=== PATIENT | male | born 1970 | race Caucasian/White ===

== ENCOUNTER 2017-07-03 16:44 | Emergency (ER) | payer OTHER ==
[2017-07-03] MEDS ORDERED: SODIUM CHLORIDE 0.9% 1,000 ML IV STA (19:34)
--- NOTE | 2017-07-03 19:37 | ED ---
Abdominal Pain HPI - General Chief Complaint: Abdominal Pain Stated Complaint: Abd Pain Time Seen by Provider: 07/03/17 19:24 Source: patient Mode of arrival: ambulatory Limitations: no limitations - History of Present Illness Initial Comments: 47-year-old male patient presents to the emergency department today for complaints of lower abdominal pain. Patient states the pain is in his suprapubic region. States that there is a constant pressure to the area however he does have sharp stabbing pains intermittently. Patient states he has been having loose stools for the last 2 days as well. He states that his stool is currently very dark. He states he has been taking Pepto-Bismol to help with his symptoms. He states that he has been having hot and cold flashes. He denies any known fevers. He denies any constipation. Patient denies any recent rash, fever, chills, shortness breath, chest pain, nausea, vomiting, back pain, numbness, tingling, dizziness, weakness, hematuria, dysuria , urinary urgency, urinary frequency, headache, visual changes, or any other complaints. - Related Data Home Medications Medication Instructions Recorded Confirmed Cyclobenzaprine [Flexeril] 10 mg PO TID PRN 05/15/14 07/03/17 Furosemide [Lasix] 20 mg PO DAILY 05/15/14 07/03/17 Lisinopril [Prinivil] 10 mg PO DAILY 05/15/14 07/03/17 Ranitidine HCl [Zantac] 150 mg PO BID 05/15/14 07/03/17 Simvastatin [Zocor] 40 mg PO HS 05/15/14 07/03/17 HYDROcodone/APAP 10-325MG [[place] 1 tab PO Q8H PRN 07/03/17 07/03/17 10-325] Allergies Allergy/AdvReac Type Severity Reaction Status Date / Time No Known Allergies Allergy Verified 07/03/17 19:27 Review of Systems ROS Statement: Those systems with pertinent positive or pertinent negative responses have been documented in the HPI. ROS Other: All systems not noted in ROS Statement are negative. Past Medical History Past Medical History: Asthma, GERD/Reflux, Hypertension, Sleep Apnea/CPAP/BIPAP Additional Past Medical History / Comment(s): C PAP MACHINE History of Any Multi-Drug Resistant Organisms: None Reported Past Surgical History: Cholecystectomy Additional Past Surgical History / Comment(s): 07/20/14 Lap alecia, left-cataract , EGD Past Anesthesia/Blood Transfusion Reactions: No Reported Reaction Past Psychological History: No Psychological Hx Reported Smoking Status: Current every day smoker Past Alcohol Use History: Occasional Past Drug Use History: None Reported - Past Family History Mother Family Medical History: Hypertension Father Family Medical History: Asthma, COPD, Coronary Artery Disease (CAD), Hypertension General Exam Limitations: no limitations General appearance: alert, in no apparent distress, other (Physical well- developed, well-nourished adult male patient in no acute distress. Vital signs upon presentation are temperature 98.2F, pulse 97, respirations 18, blood pressure 142/74, pulse ox 95% on room air.) Eye exam: Present: normal appearance, PERRL, EOMI. Absent: scleral icterus, conjunctival injection, periorbital swelling ENT exam: Present: normal exam, normal oropharynx, mucous membranes moist Respiratory exam: Present: normal lung sounds bilaterally. Absent: respiratory distress, wheezes, rales, rhonchi, stridor Cardiovascular Exam: Present: regular rate, normal rhythm, normal heart sounds. Absent: systolic murmur, diastolic murmur, rubs, gallop, clicks GI/Abdominal exam: Present: soft, tenderness (Suprapubic abdominal tenderness), normal bowel sounds. Absent: distended, guarding, rebound, rigid Neurological exam: Present: alert, oriented X3, CN II-XII intact Psychiatric exam: Present: normal affect, normal mood Skin exam: Present: warm, dry, intact, normal color. Absent: rash Course Vital Signs 07/03/17 07/03/17 17:14 21:17 Temperature 98.2 F 98 F Pulse Rate 97 88 Respiratory 18 20 Rate Blood Pressure 142/74 155/75 O2 Sat by Pulse 95 99 Oximetry Medical Decision Making - Medical Decision Making 47 year-old male patient presented to the emergency department today for complaints of mid lower abdominal pain. Physical examination was relatively unremarkable, no abdominal tenderness. KUB x-ray did show large bowel air- fluid levels which could indicate diarrhea. I did perform CT of the abdomen and pelvis with contrast which was negative for any acute intra-abdominal abnormalities. Patient did report dark stool however he also reported drinking Pepto-Bismol for the last 2 days. Labs are relatively unremarkable with a mild elevation in white blood cell count. I did discuss findings and results with patient. I did discuss his symptoms could be related to a gastroenteritis however I instructed him to follow up with his primary care physician to discuss colonoscopy. He is instructed to return here immediately for any new, worsening, or concerning symptoms. He verbalizes understanding and agrees with this plan. - Lab Data Result diagrams: 07/03/17 20:13 07/03/17 20:13 Lab Results 07/03/17 07/03/17 07/03/17 Range/Units 20:13 20:13 20:35 WBC 14.7 H (3.8-10.6) k/uL RBC 5.10 (4.30-5.90) m/uL Hgb 15.6 (13.0-17.5) gm/dL Hct 46.4 (39.0-53.0) % MCV 91.1 (80.0-100.0) fL MCH 30.7 (25.0-35.0) pg MCHC 33.7 (31.0-37.0) g/dL RDW 12.7 (11.5-15.5) % Plt Count 250 (150-450) k/uL Neutrophils % 71 % Lymphocytes % 18 % Monocytes % 6 % Eosinophils % 3 % Basophils % 0 % Neutrophils # 10.5 H (1.3-7.7) k/uL Lymphocytes # 2.7 (1.0-4.8) k/uL Monocytes # 0.8 (0-1.0) k/uL Eosinophils # 0.4 (0-0.7) k/uL Basophils # 0.1 (0-0.2) k/uL Sodium 140 (137-145) mmol/L Potassium 4.4 (3.5-5.1) mmol/L Chloride 104 (98-107) mmol/L Carbon Dioxide 25 (22-30) mmol/L Anion Gap 11 mmol/L BUN 13 (9-20) mg/dL Creatinine 0.88 (0.66-1.25) mg/dL Est GFR (MDRD) Af Amer >60 (>60 ml/min/1.73 sqM) Est GFR (MDRD) Non-Af >60 (>60 ml/min/1.73 sqM) Glucose 85 (74-99) mg/dL Calcium 9.4 (8.4-10.2) mg/dL Total Bilirubin 0.4 (0.2-1.3) mg/dL AST 20 (17-59) U/L ALT 32 (21-72) U/L Alkaline Phosphatase 77 (38-126) U/L Total Protein 6.6 (6.3-8.2) g/dL Albumin 3.8 (3.5-5.0) g/dL Amylase 44 (30-110) U/L Lipase 77 (23-300) U/L Urine Color Yellow Urine Appearance Clear (Clear) Urine pH 5.5 (5.0-8.0) Ur Specific [place] 1.025 (1.001-1.035) Urine Protein Trace H (Negative) Urine Glucose (UA) Negative (Negative) Urine Ketones Negative (Negative) Urine Blood Negative (Negative) Urine Nitrite Negative (Negative) Urine Bilirubin Negative (Negative) Urine Urobilinogen 2.0 (<2.0) mg/dL Ur Leukocyte Esterase Negative (Negative) - Radiology Data Radiology results: report reviewed, image reviewed CT the abdomen and pelvis with contrast was obtained, report was reviewed in its entirety. Conclusion by Dr. Mas shows negative computed tomography scan of the abdomen and pelvis. Do not see constipation symptoms. No adverse change compared to old exam. Two-view x-ray of the abdomen shows no sign of intestinal obstruction or pneumoperitoneum. There are a few colonic air-fluid levels. Lung bases are clear consolidation. There are clips cholecystectomy. I see no pathologic calcifications over the kidneys. Impression by Dr. Mas shows large bowel air-fluid levels could relate to diarrhea. No free air. Disposition Clinical Impression: Abdominal pain Disposition: HOME SELF-CARE Condition: Good Instructions: Abdominal Pain (ED) Additional Instructions: Increase fluids. Follow-up with her primary care physician for recheck in 1-2 days. Discussed possibility of a colonoscopy. Return here immediately for any new, worsening, or concerning symptoms. Referrals: Sola Borden MD [Primary Care Provider] - 1-2 days Time of Disposition: 22:04
--- NOTE | 2017-07-03 20:13 | XR ---
EXAMINATION TYPE: XR KUB DATE OF EXAM: 07/03/2017 COMPARISON: NONE HISTORY: Abdominal pain TECHNIQUE: 2 views FINDINGS: There is no sign of intestinal obstruction or pneumoperitoneum. There are few colonic air- fluid levels. Lung bases are clear of consolidation. There are clips from cholecystectomy. I see no p athologic calcifications over the kidneys. IMPRESSION: Large bowel air-fluid levels could relate to diarrhea. No free air.
[2017-07-03 20:22] LABS: Basophils # (A) 0.1 k/uL (0-0.2); Basophils % (A) 0 %; Eosinophils # (A) 0.4 k/uL (0-0.7); Eosinophils % (A) 3 %; HCT 46.4 % (39.0-53.0); HGB 15.6 gm/dL (13.0-17.5); Lymphocytes # (A) 2.7 k/uL (1.0-4.8); Lymphocytes % (A) 18 %; MCH 30.7 pg (25.0-35.0); MCHC 33.7 g/dL (31.0-37.0); MCV 91.1 fL (80.0-100.0); Monocytes # (A) 0.8 k/uL (0-1.0); Monocytes % (A) 6 %; Neutrophils # (A) 10.5 k/uL (1.3-7.7); Neutrophils % (A) 71 %; Platelet Count 250 k/uL (150-450); RDW 12.7 % (11.5-15.5); WBC 14.7 k/uL (3.8-10.6)
[2017-07-03 20:32] LABS: ALT 32 U/L (21-72); AST 20 U/L (17-59); Albumin 3.8 g/dL (3.5-5.0); Alkaline Phosphatase 77 U/L (38-126); Amylase 44 U/L (30-110); Anion Gap 11 mmol/L; Blood Urea Nitrogen 13 mg/dL (9-20); Calcium 9.4 mg/dL (8.4-10.2); Carbon Dioxide 25 mmol/L (22-30); Chloride 104 mmol/L (98-107); Glucose 85 mg/dL (74-99); Lipase 77 U/L (23-300); Potassium 4.4 mmol/L (3.5-5.1); Sodium 140 mmol/L (137-145); Total Bilirubin 0.4 mg/dL (0.2-1.3); Total Protein 6.6 g/dL (6.3-8.2)
[2017-07-03 20:50] LABS: Appearance,Urine Clear (Clear); Bilirubin,Urine Negative (Negative); Blood,Urine Negative (Negative); Color,Urine Yellow; Glucose,Urine (UA) Negative (Negative); Ketones,Urine Negative (Negative); Leukocyte Esterase,Urine Negative (Negative); Nitrite,Urine Negative (Negative); PH, Urine 5.5 (5.0-8.0); Protein,Urine Trace (Negative); Specific Gravity,Urine 1.025 (1.001-1.035)
[2017-07-03] MEDS ORDERED: RX INFO: IV CONTRAST WAS GIVEN 1 EACH MISC MISCELLANE PRN (21:09)
--- NOTE | 2017-07-03 21:54 | CT ---
EXAMINATION TYPE: CT abdomen pelvis w con DATE OF EXAM: 07/03/2017 COMPARISON: NONE HISTORY: Dark stool and pelvic pain x [address] DLP: 2168.50 mGycm Automated exposure control for dose reduction was used. TECHNIQUE: Helical acquisition of images was performed from the lung bases through the pelvis. CONTRAST: Performed without Oral Contrast and with IV Contrast, patient injected with 100 mL of Omnipaque 300. FINDINGS: Lung bases are clear of infiltrate. There is no pleural effusion. Heart size is normal. Liver shows no focal defect. There are clips from cholecystectomy. Bile ducts are not dilated. Spleen and pancreas appear normal. There is no adrenal mass. Kidneys show satisfactory contrast opacification. There is no hydronephrosi s. There is no retroperitoneal adenopathy. There is no ascites. I see no intestinal wall thickening. There are no dilated loops. There is no free fluid in the pelvis. There is no sign of free air. Appen kristi is not seen. There is no sign of appendicitis. Bony structures appear intact. CONCLUSION: Negative CT scan of the abdomen and pelvis. I do not see a cause for the patient's symptoms. No adver se change compared to old exam.
[2017-07-03 22:26] VITALS: BP 125/72; PULSE 67; RESP 16; TEMP 98.1
== END 2017-07-03 22:28 | disposition home or self-care (01) ==
LOC: EC 16:44
DX: R10.30 Lower abdominal pain, unspecified (principal); D72.829 Elevated white blood cell count, unspecified; I10 Essential (primary) hypertension; K21.9 Gastro-esophageal reflux disease without esophagitis; G47.30 Sleep apnea, unspecified; F17.200 Nicotine dependence, unspecified, uncomplicated; Z79.899 Other long term (current) drug therapy; Z99.89 Dependence on other enabling machines and devices; Z90.49 Acquired absence of other specified parts of digestive tract; Z98.890 Other specified postprocedural states
CPT/HCPCS: 36415; 80053; 82150; 83690; 85025; 81003; 74018; 74177; 99284; 96360; Q9967

== ENCOUNTER 2017-09-01 10:05 | Day surgery (SDC) | payer OTHER ==
[2017-08-12 08:30] VITALS: BMI 43.0
[~2017-09-01 10:05] MED LIST: LIDOCAINE 1% 20 ML VIAL (10MG/ML) FOR IV START INTRADERMA PRN
[2017-09-01 10:49] VITALS: RESP 16; TEMP 97.9
[2017-09-01] MEDS: LACTATED RINGERS 1,000 ML IV SCH ×2 (10:59→12:01)
[2017-09-01] MEDS ORDERED: PROPOFOL 10 MG/ML 20 ML VIAL IV ONE (12:06)
[2017-09-01] MEDS ORDERED: LIDOCAINE 1% INJ 10MG/ML (20 ML MDV) ONE (12:06)
[2017-09-01] MEDS ORDERED: MIDAZOLAM 2 MG/2 ML VIAL ONE (12:06)
--- NOTE | 2017-09-01 12:10 | P.GSHP ---
History of Present Illness H&P Date: 09/01/17 Chief Complaint: GERD, diarrhea This a 47-year-old male referred from Dr. dahl. Patient had complaints of GERD and diarrhea. He presents today for EGD and colonoscopy. Past Medical History Past Medical History: Asthma, GERD/Reflux, Hearing Disorder / Deafness, Hypertension, Sleep Apnea/CPAP/BIPAP Additional Past Medical History / Comment(s): C PAP MACHINE, BACK PAIN, [place], STATES HAVING STOMACH PAIN. History of Any Multi-Drug Resistant Organisms: None Reported Past Surgical History: Cholecystectomy Additional Past Surgical History / Comment(s): 07/20/14 Lap alecia, left-cataract , EGD Past Anesthesia/Blood Transfusion Reactions: No Reported Reaction Smoking Status: Heavy tobacco smoker - Past Family History Mother Family Medical History: Hypertension Father Family Medical History: Asthma, COPD, Coronary Artery Disease (CAD), Hypertension Medications and Allergies Home Medications Medication Instructions Recorded Confirmed Type Cyclobenzaprine [Flexeril] 10 mg PO TID PRN 05/15/14 09/01/17 History Furosemide [Lasix] 20 mg PO DAILY PRN 05/15/14 09/01/17 History Lisinopril [Prinivil] 10 mg PO HS 05/15/14 09/01/17 History Ranitidine HCl [Zantac] 150 mg PO BID 05/15/14 09/01/17 History Simvastatin [Zocor] 40 mg PO HS 05/15/14 09/01/17 History HYDROcodone/APAP 10-325MG [[place] 1 tab PO Q8H PRN 07/03/17 09/01/17 History 10-325] Albuterol Inhaler [Ventolin Hfa 1 - 2 puff INHALATION Q6HR PRN 08/12/17 History Inhaler] Allergies Allergy/AdvReac Type Severity Reaction Status Date / Time No Known Allergies Allergy Verified 09/01/17 10:51 Surgical - Exam Vital Signs Temp Pulse Resp BP Pulse Ox 97.9 F 70 16 129/70 95 09/01/17 10:45 09/01/17 10:45 09/01/17 10:45 09/01/17 10:45 09/01/17 10:45 - General well developed, no distress - Eyes PERRL - ENT normal pinna - Neck no masses - Respiratory normal expansion - Cardiovascular Rhythm: regular - Abdomen Abdomen: soft, non tender Assessment and Plan Assessment: GERD, diarrhea. We'll perform EGD and colonoscopy.
--- NOTE | 2017-09-01 12:31 | P.OP ---
Date of Procedure: 09/01/17 Preoperative Diagnosis: GERD Diarrhea Postoperative Diagnosis: Mild antral gastritis No evidence of hiatal hernia Mild esophagitis Rectal polyp Procedure(s) Performed: EGD Colonoscopy Anesthesia: MAC Surgeon: Sascha Barron Pathology: other (Antrum, esophagus, rectum) Condition: stable Disposition: PACU Description of Procedure: The patient was placed on the endoscopy table in the lateral position. He received IV sedation. The gastroscope placed oropharynx passed in the esophagus and into the stomach. Scope was then placed through the pylorus. The first and second portion of the duodenum appeared normal. The scope was then brought back the antrum and this was mildly inflamed. A biopsies was performed. The scope was then retroflexed and the remainder of the stomach appeared normal. The patient had a previous fundal plication wrap. This appeared to be in the appropriate position. There is no evidence of a hiatal hernia. The GE junction was at 40 cm. The distal esophagus appeared minimally inflamed a biopsies was performed. The proximal esophagus appeared normal. The scope was withdrawn for patient. Next digital rectal exam was performed which revealed no ebonized. The flexible colonoscope was then placed patient anus and passed throughout the entire colon. The ileocecal valve was visualized. The cecum, ascending and transverse colon appeared normal. In the descending; was mild diverticular changes. The scope was then brought back the rectum and a small polyp seen this removed with a forcep. The scope was withdrawn for patient.
[2017-09-01 12:44] VITALS: BP 122/83; PULSE 71
== END 2017-09-01 12:51 | disposition home or self-care (01) ==
LOC: ORWHC2ENDO 10:05
PROVIDERS: ATTEND Surgery
DX: K29.50 Unspecified chronic gastritis without bleeding (principal); J45.909 Unspecified asthma, uncomplicated; I10 Essential (primary) hypertension; H91.90 Unspecified hearing loss, unspecified ear; K62.1 Rectal polyp; G47.33 Obstructive sleep apnea (adult) (pediatric); F17.210 Nicotine dependence, cigarettes, uncomplicated; E78.5 Hyperlipidemia, unspecified; K21.0 Gastro-esophageal reflux disease with esophagitis; E66.9 Obesity, unspecified; Z82.49 Family history of ischemic heart disease and other diseases of the circulatory system; Z82.5 Family history of asthma and other chronic lower respiratory diseases; Z79.899 Other long term (current) drug therapy; Z99.89 Dependence on other enabling machines and devices; Z79.891 Long term (current) use of opiate analgesic; Z68.41 Body mass index [BMI] 40.0-44.9, adult
CPT/HCPCS: 88305; 45380; 43239; J2250; J2001; J2704

== ENCOUNTER 2019-03-13 13:43 | Emergency (ER) | payer OTHER ==
[2019-03-13 13:53] VITALS: BP 129/83; PULSE 73; RESP 18; TEMP 97.4
--- NOTE | 2019-03-13 14:39 | ED ---
URI HPI - General Chief Complaint: Upper Respiratory Infection Stated Complaint: Congestion,Cold symptoms Time Seen by Provider: 03/13/19 13:56 Source: patient Mode of arrival: ambulatory Limitations: no limitations - History of Present Illness Initial Comments: Patient is a 48-year-old male, with past medical history of asthma, GERD, hypertension, presenting to the emergency Department with complaints of nasal congestion 2 days. Patient wears a CPAP at night and states he is having a lot of difficulty sleeping secondary to the current ingestion. Patient states he does have a mild cough with some brown yellowish production. Patient denies fever, chills, nausea, vomiting, diarrhea. Patient denies chest pain, shortness of breath. Patient states he has tried NyQuil and DayQuil at home and it has not helped. Patient has no other complaints at this time. Upon arrival to the ER, his vital signs are stable. - Related Data Home Medications Medication Instructions Recorded Confirmed Cyclobenzaprine [Flexeril] 10 mg PO TID PRN 05/15/14 09/01/17 Furosemide [Lasix] 20 mg PO DAILY PRN 05/15/14 09/01/17 Lisinopril [Prinivil] 10 mg PO HS 05/15/14 09/01/17 Ranitidine HCl [Zantac] 150 mg PO BID 05/15/14 09/01/17 Simvastatin [Zocor] 40 mg PO HS 05/15/14 09/01/17 HYDROcodone/APAP 10-325MG [[place] 1 tab PO Q8H PRN 07/03/17 09/01/17 10-325] Albuterol Inhaler [Ventolin Hfa 1 - 2 puff INHALATION Q6HR PRN 08/12/17 09/01/17 Inhaler] Previous Rx's Medication Instructions Recorded methylPREDNISolone [Medrol Dose 4 mg PO DIRECTED #1 pack 03/13/19 Pack] Allergies Allergy/AdvReac Type Severity Reaction Status Date / Time No Known Allergies Allergy Verified 03/13/19 13:53 Review of Systems ROS Statement: Those systems with pertinent positive or pertinent negative responses have been documented in the HPI. ROS Other: All systems not noted in ROS Statement are negative. Past Medical History Past Medical History: Asthma, GERD/Reflux, Hearing Disorder / Deafness, Hypertension, Sleep Apnea/CPAP/BIPAP Additional Past Medical History / Comment(s): C PAP MACHINE, BACK PAIN, [place] History of Any Multi-Drug Resistant Organisms: None Reported Past Surgical History: Cholecystectomy Additional Past Surgical History / Comment(s): 07/20/14 Lap alecia, left-cataract, EGD Past Anesthesia/Blood Transfusion Reactions: No Reported Reaction Past Psychological History: No Psychological Hx Reported Smoking Status: Heavy tobacco smoker Past Alcohol Use History: None Reported Past Drug Use History: None Reported - Past Family History Mother Family Medical History: Hypertension Father Family Medical History: Asthma, COPD, Coronary Artery Disease (CAD), Hypertension General Exam - General Exam Comments Initial Comments: GENERAL: Well-appearing, well-nourished and in no acute distress. HEAD: Atraumatic, normocephalic. EYES: Pupils equal round and reactive to light, extraocular movements intact, sclera anicteric, conjunctiva are normal. ENT: TMs normal, nares patent, oropharynx clear without exudates, tonsils are not erythematous, no exudate. Moist mucous membranes. NECK: Normal range of motion, supple without lymphadenopathy or JVD. LUNGS: Breath sounds clear to auscultation bilaterally and equal. No wheezes rales or rhonchi. HEART: Regular rate and rhythm without murmurs, rubs or gallops. ABDOMEN: Soft, nontender, normoactive bowel sounds. No guarding, no rebound. No masses appreciated. EXTREMITIES: Normal range of motion, no pitting or edema. No clubbing or cyanosis. SKIN: Warm, Dry, normal turgor, no rashes or lesions noted. Limitations: no limitations Course Vital Signs 03/13/19 13:51 Temperature 97.4 F L Pulse Rate 73 Respiratory 18 Rate Blood Pressure 129/83 O2 Sat by Pulse 95 Oximetry Medical Decision Making - Medical Decision Making Patient is a 48-year-old male presenting to the emergency Department with complaints of nasal congestion 2 days. Patient denies fever, chills, nausea, vomiting. Patient has no other complaints right now. Patient has history of asthma and COPD and does wear a CPAP at night. X-rays reveal no acute processes. Patient will be given prescription for steroids and will try Flonase or another decongestant. Patient is stable for discharge at this time. Patient will follow up with PCP if symptoms persist. Case discussed with Dr. Latif. Disposition Clinical Impression: Common cold, Nasal congestion Disposition: HOME SELF-CARE Condition: Stable Instructions (If sedation given, give patient instructions): Upper Respiratory Infection (ED) Additional Instructions: Please return to the Emergency Department if symptoms worsen or any other concerns. Take steroids as prescribed. Trial of Flonase or other decongestant. Prescriptions: methylPREDNISolone [Medrol Dose Pack] 4 mg PO DIRECTED #1 pack Is patient prescribed a controlled substance at d/c from ED?: No Referrals: Sola Borden MD [Primary Care Provider] - 1-2 days
--- NOTE | 2019-03-13 14:41 | XR ---
EXAMINATION TYPE: XR chest 2V DATE OF EXAM: 03/13/2019 COMPARISON: 09/08/2013 HISTORY: Asthma TECHNIQUE: Frontal and lateral views of the chest are obtained. FINDINGS: Heart is normal. Lungs are clear of consolidation. There are no hilar masses. Costophrenic angles are clear. There is small linear density left lung base. IMPRESSION: There is small area of subsegmental atelectasis left lung base which is a change.. Sparkle l heart.
== END 2019-03-13 15:24 | disposition home or self-care (01) ==
LOC: EC 13:43
DX: J00 Acute nasopharyngitis [common cold] (principal); R09.81 Nasal congestion; R05 Cough; K21.9 Gastro-esophageal reflux disease without esophagitis; I10 Essential (primary) hypertension; G47.30 Sleep apnea, unspecified; F17.210 Nicotine dependence, cigarettes, uncomplicated; Z79.51 Long term (current) use of inhaled steroids; Z79.899 Other long term (current) drug therapy; Z99.89 Dependence on other enabling machines and devices; Z87.09 Personal history of other diseases of the respiratory system; Z82.5 Family history of asthma and other chronic lower respiratory diseases
CPT/HCPCS: 71046; 99283

== ENCOUNTER → 2019-04-28 | Outpatient (CLI) | payer OTHER ==
--- NOTE | 2019-04-28 14:18 | CT ---
EXAMINATION TYPE: CT chest w con DATE OF EXAM: 04/28/2019 COMPARISON: CT 07/03/2017 HISTORY: RUQ pain with occasional shortness of breath. CT DLP: 664.9 mGycm Automated exposure control for dose reduction was used. CONTRAST: CT scan of the chest is performed with IV Contrast, patient injected with 100 mL of Isovue 300. FINDINGS: LUNGS: The lungs are remarkable for a soft tissue nodule in the right lower lobe on axial image #43 m easuring approximately 14 mm similar to prior exam. Azygos lobe noted incidentally. There is no ple ural effusion or pneumothorax seen. The tracheobronchial tree is patent. MEDIASTINUM: There are no greater than 1 cm hilar or mediastinal lymph nodes. No pericardial effusi on is seen. Coronary artery calcifications are present. AORTA: No additional significant abnormality is seen. OTHER: Liver shows low attenuation likely due to hepatic steatosis. Patient is post cholecystectomy. IMPRESSION: Pulmonary nodule right lower lobe shows a similar appearance, may have grown minimally i n the interval although there are differences in technique. Coronary artery disease.
== END | disposition home or self-care (01) ==
LOC: RADCTMAIN 11:21
PROVIDERS: ATTEND Internal Medicine
DX: I25.10 Atherosclerotic heart disease of native coronary artery without angina pectoris (principal); R91.1 Solitary pulmonary nodule
CPT/HCPCS: 71260; Q9967

== ENCOUNTER 2020-04-13 20:06 | Emergency (ER) | payer OTHER ==
[2020-04-13 20:14] VITALS: RESP 18
[2020-04-13] MEDS ORDERED: SODIUM CHLORIDE 0.9% 1,000 ML IV ONE (20:34)
--- NOTE | 2020-04-13 20:53 | ED ---
Abdominal Pain HPI - General Chief Complaint: Abdominal Pain Stated Complaint: Abd Pain Time Seen by Provider: 04/13/20 20:23 Source: patient Mode of arrival: ambulatory - History of Present Illness Initial Comments: 50-year-old male patient presents to the emergency department today for evaluation of mid lower abdominal pain. Patient states that he has had this pain in the past but is usually mild and self-limited after having a bowel movement or passing gas. Patient states that the pain started earlier today, states his been persistent throughout the day and became quite severe this evening area states is worse than it has ever been. Patient states he has had a couple of bowel movements today and has passed gas without relief of his pain. He denies any nausea, vomiting, constipation, or diarrhea. Denies any hematochezia or melena. Denies any fever or chills. He has had repair of hiatal hernia and cholecystectomy in the past but no other abdominal surgeries. Patient does report smoking but denies any alcohol use. Last colonoscopy was [address] Barron. There were no abnormal findings on that exam. Patient denies any recent rash, cough, shortness of breath, chest pain, back pain, numbness, tingling, dizziness, weakness, hematuria, dysuria, urinary urgency, urinary frequency, headache, visual changes, or any other complaints. - Related Data Home Medications Medication Instructions Recorded Confirmed Cyclobenzaprine [Flexeril] 10 mg PO TID PRN 05/15/14 09/01/17 Furosemide [Lasix] 20 mg PO DAILY PRN 05/15/14 09/01/17 Lisinopril [Prinivil] 10 mg PO HS 05/15/14 09/01/17 Ranitidine HCl [Zantac] 150 mg PO BID 05/15/14 09/01/17 Simvastatin [Zocor] 40 mg PO HS 05/15/14 09/01/17 HYDROcodone/APAP 10-325MG [[place] 1 tab PO Q8H PRN 07/03/17 09/01/17 10-325] Albuterol Inhaler (Mhu) [Ventolin 1 - 2 puff INHALATION Q6HR PRN 08/12/17 09/01/17 Hfa Inhaler] Previous Rx's Medication Instructions Recorded methylPREDNISolone [Medrol Dose 4 mg PO DIRECTED #1 pack 03/13/19 Pack] Amoxic-Pot Clav 875-125Mg 1 tab PO Q12HR #20 tablet 04/13/20 [Augmentin 875-125] Allergies Allergy/AdvReac Type Severity Reaction Status Date / Time No Known Allergies Allergy Verified 04/13/20 20:14 Review of Systems ROS Statement: Those systems with pertinent positive or pertinent negative responses have been documented in the HPI. ROS Other: All systems not noted in ROS Statement are negative. Past Medical History Past Medical History: Asthma, GERD/Reflux, Hearing Disorder / Deafness, Hypertension, Sleep Apnea/CPAP/BIPAP Additional Past Medical History / Comment(s): C PAP MACHINE, BACK PAIN, [place] History of Any Multi-Drug Resistant Organisms: None Reported Past Surgical History: Cholecystectomy Additional Past Surgical History / Comment(s): 07/20/14 Lap alecia, left-cataract, EGD Past Anesthesia/Blood Transfusion Reactions: No Reported Reaction Past Psychological History: No Psychological Hx Reported Smoking Status: Current every day smoker Past Alcohol Use History: None Reported Past Drug Use History: None Reported - Past Family History Mother Family Medical History: Hypertension Father Family Medical History: Asthma, COPD, Coronary Artery Disease (CAD), Hypertension General Exam General appearance: alert, in no apparent distress, other (This is a well- developed, well-nourished adult male patient in no acute distress. Vital signs upon presentation are temperature 98.7F, pulse 97, respirations 18, blood pressure 154/106, pulse ox 97% on room air.) Eye exam: Present: normal appearance, PERRL, EOMI. Absent: scleral icterus, conjunctival injection, periorbital swelling ENT exam: Present: normal exam, normal oropharynx, mucous membranes moist Respiratory exam: Present: normal lung sounds bilaterally. Absent: respiratory distress, wheezes, rales, rhonchi, stridor Cardiovascular Exam: Present: regular rate, normal rhythm, normal heart sounds. Absent: systolic murmur, diastolic murmur, rubs, gallop, clicks GI/Abdominal exam: Present: soft, tenderness (Suprapubic and left lower quadrant), normal bowel sounds. Absent: distended, guarding, rebound, rigid Neurological exam: Present: alert, oriented X3, CN II-XII intact Psychiatric exam: Present: normal affect, normal mood Skin exam: Present: warm, dry, intact, normal color. Absent: rash Course Vital Signs 11/27/20 20:10 Temperature 98.7 F Pulse Rate 97 Respiratory 18 Rate Blood Pressure 154/106 O2 Sat by Pulse 97 Oximetry Medical Decision Making - Medical Decision Making 50-year-old male patient presents to the emergency department today for evaluation of suprapubic abdominal pain. Physical examination did reveal suprapubic and left lower quadrant abdominal tenderness. He is afebrile. Labs reviewed and did reveal elevated white blood cell count at 13.5. CT abdomen and pelvis was obtained and did show evidence for sigmoid diverticulitis. I did discuss findings and diagnosis with the patient. We'll start Augmentin as he does prefer outpatient treatment at this time. He will be discharged to follow- up with his primary care physician for recheck in 1-2 days. Return parameters were discussed in detail. He verbalizes understanding and agrees with this plan. - Lab Data Result diagrams: 04/13/20 20:56 04/13/20 20:56 Lab Results 04/13/20 04/13/20 04/13/20 Range/Units 20:56 20:56 20:56 WBC 13.5 H (3.8-10.6) k/uL RBC 4.97 (4.30-5.90) m/uL Hgb 15.7 (13.0-17.5) gm/dL Hct 45.1 (39.0-53.0) % MCV 90.7 (80.0-100.0) fL MCH 31.7 (25.0-35.0) pg MCHC 34.9 (31.0-37.0) g/dL RDW 12.6 (11.5-15.5) % Plt Count 229 (150-450) k/uL MPV 7.6 Neutrophils % 78 % Lymphocytes % 11 % Monocytes % 8 % Eosinophils % 1 % Basophils % 1 % Neutrophils # 10.5 H (1.3-7.7) k/uL Lymphocytes # 1.4 (1.0-4.8) k/uL Monocytes # 1.0 (0-1.0) k/uL Eosinophils # 0.2 (0-0.7) k/uL Basophils # 0.2 (0-0.2) k/uL Sodium 137 (137-145) mmol/L Potassium 4.1 (3.5-5.1) mmol/L Chloride 105 (98-107) mmol/L Carbon Dioxide 27 (22-30) mmol/L Anion Gap 5 mmol/L BUN 11 (9-20) mg/dL Creatinine 0.84 (0.66-1.25) mg/dL Est GFR (CKD-EPI)AfAm >90 (>60 ml/min/1.73 sqM) Est GFR (CKD-EPI)NonAf >90 (>60 ml/min/1.73 sqM) Glucose 133 H (74-99) mg/dL Plasma Lactic Acid Randy (0.7-2.0) mmol/L Calcium 9.3 (8.4-10.2) mg/dL Total Bilirubin 0.5 (0.2-1.3) mg/dL AST 18 (17-59) U/L ALT 17 (4-49) U/L Alkaline Phosphatase 56 (38-126) U/L Total Protein 6.7 (6.3-8.2) g/dL Albumin 3.7 (3.5-5.0) g/dL Lipase 66 (23-300) U/L Urine Color Light Yellow Urine Appearance Clear (Clear) Urine pH 7.0 (5.0-8.0) Ur Specific [place] 1.009 (1.001-1.035) Urine Protein Negative (Negative) Urine Glucose (UA) Negative (Negative) Urine Ketones Negative (Negative) Urine Blood Negative (Negative) Urine Nitrite Negative (Negative) Urine Bilirubin Negative (Negative) Urine Urobilinogen <2.0 (<2.0) mg/dL Ur Leukocyte Esterase Negative (Negative) 04/13/20 Range/Units 20:56 WBC (3.8-10.6) k/uL RBC (4.30-5.90) m/uL Hgb (13.0-17.5) gm/dL Hct (39.0-53.0) % MCV (80.0-100.0) fL MCH (25.0-35.0) pg MCHC (31.0-37.0) g/dL RDW (11.5-15.5) % Plt Count (150-450) k/uL MPV Neutrophils % % Lymphocytes % % Monocytes % % Eosinophils % % Basophils % % Neutrophils # (1.3-7.7) k/uL Lymphocytes # (1.0-4.8) k/uL Monocytes # (0-1.0) k/uL Eosinophils # (0-0.7) k/uL Basophils # (0-0.2) k/uL Sodium (137-145) mmol/L Potassium (3.5-5.1) mmol/L Chloride (98-107) mmol/L Carbon Dioxide (22-30) mmol/L Anion Gap mmol/L BUN (9-20) mg/dL Creatinine (0.66-1.25) mg/dL Est GFR (CKD-EPI)AfAm (>60 ml/min/1.73 sqM) Est GFR (CKD-EPI)NonAf (>60 ml/min/1.73 sqM) Glucose (74-99) mg/dL Plasma Lactic Acid Randy 1.4 (0.7-2.0) mmol/L Calcium (8.4-10.2) mg/dL Total Bilirubin (0.2-1.3) mg/dL AST (17-59) U/L ALT (4-49) U/L Alkaline Phosphatase (38-126) U/L Total Protein (6.3-8.2) g/dL Albumin (3.5-5.0) g/dL Lipase (23-300) U/L Urine Color Urine Appearance (Clear) Urine pH (5.0-8.0) Ur Specific [place] (1.001-1.035) Urine Protein (Negative) Urine Glucose (UA) (Negative) Urine Ketones (Negative) Urine Blood (Negative) Urine Nitrite (Negative) Urine Bilirubin (Negative) Urine Urobilinogen (<2.0) mg/dL Ur Leukocyte Esterase (Negative) - Radiology Data Radiology results: report reviewed, image reviewed CT abdomen and pelvis with contrast was obtained. Report was reviewed in its entirety. Impression by Dr. Mas shows evidence of sigmoid diverticulitis which is a change compared to old exam. No drainable fluid collection. Disposition Clinical Impression: Sigmoid diverticulitis Disposition: HOME SELF-CARE Condition: Good Instructions (If sedation given, give patient instructions): Diverticulitis (ED), Diverticulitis Diet (ED) Additional Instructions: Complete antibiotic prescription in full. Take pain medication as needed. Follow up with her primary care physician for recheck in 1-2 days. Return to the emergency department immediately for any new, worsening, or concerning symptoms. Prescriptions: Amoxic-Pot Clav 875-125Mg [Augmentin 875-125] 1 tab PO Q12HR #20 tablet Is patient prescribed a controlled substance at d/c from ED?: No Referrals: Sola Borden MD [Primary Care Provider] - 1-2 days Time of Disposition: 22:17
[2020-04-13 21:05] LABS: Basophils # (A) 0.2 k/uL (0-0.2); Basophils % (A) 1 %; Eosinophils # (A) 0.2 k/uL (0-0.7); Eosinophils % (A) 1 %; HCT 45.1 % (39.0-53.0); HGB 15.7 gm/dL (13.0-17.5); Lymphocytes # (A) 1.4 k/uL (1.0-4.8); Lymphocytes % (A) 11 %; MCH 31.7 pg (25.0-35.0); MCHC 34.9 g/dL (31.0-37.0); MCV 90.7 fL (80.0-100.0); Mean Platelet Volume 7.6; Monocytes % (A) 8 %; Neutrophils # (A) 10.5 k/uL (1.3-7.7); Neutrophils % (A) 78 %; Platelet Count 229 k/uL (150-450); RBC 4.97 m/uL (4.30-5.90); RDW 12.6 % (11.5-15.5); WBC 13.5 k/uL (3.8-10.6)
[2020-04-13 21:14] LABS: ALT 17 U/L (4-49); AST 18 U/L (17-59); African American GFR (CKD) >90 (>60 ml/min/1.73 sqM); Albumin 3.7 g/dL (3.5-5.0); Alkaline Phosphatase 56 U/L (38-126); Anion Gap 5 mmol/L; Blood Urea Nitrogen 11 mg/dL (9-20); Calcium 9.3 mg/dL (8.4-10.2); Carbon Dioxide 27 mmol/L (22-30); Chloride 105 mmol/L (98-107); Glucose 133 mg/dL (74-99); Lipase 66 U/L (23-300); Non-African American GFR(CKD) >90 (>60 ml/min/1.73 sqM); Potassium 4.1 mmol/L (3.5-5.1); Sodium 137 mmol/L (137-145); Total Bilirubin 0.5 mg/dL (0.2-1.3); Total Protein 6.7 g/dL (6.3-8.2)
[2020-04-13 22:02] LABS: Appearance,Urine Clear (Clear); Bilirubin,Urine Negative (Negative); Blood,Urine Negative (Negative); Color,Urine Light Yellow; Glucose,Urine (UA) Negative (Negative); Ketones,Urine Negative (Negative); Leukocyte Esterase,Urine Negative (Negative); Nitrite,Urine Negative (Negative); Protein,Urine Negative (Negative); Specific Gravity,Urine 1.009 (1.001-1.035); Urobilinogen,Urine <2.0 mg/dL (<2.0)
--- NOTE | 2020-04-13 22:05 | CT ---
EXAMINATION TYPE: CT abdomen pelvis w con DATE OF EXAM: 04/13/2020 COMPARISON: HISTORY: Suprapubic abdomeon pain 07/03/2017 CT DLP: 2310 mGycm Automated exposure control for dose reduction was used. CONTRAST: Performed with IV Contrast, patient injected with 100 mL of Isovue 300. Lung bases are clear of consolidation. There is no pleural effusion. Heart size is normal. There is n o pericardial effusion. There are clips from cholecystectomy. Liver shows no focal defect. Spleen is intact stomach is intact . There is no pancreatic mass. The bile ducts are not dilated. There is no adrenal mass. Kidneys show satisfactory contrast opacification. There is no hydronephrosi s. Delayed images show normal renal excretion. The ureters are not dilated. Bladder distends smoothly . There is no inguinal hernia. There is no free fluid in the pelvis. There is wall thickening and fat stranding around the mid sigmoid colon. There are multiple sigmoid d iverticula. There are numerous diverticula in the descending colon and sigmoid colon. Appendix is not definitely seen. There is no sign of thickened appendix. Lumbar vertebra have normal alignment. There is no compression fracture. Bony pelvis is intact. The h ip joints are intact. There is no evidence of bony destructive process. There is no evidence of free air. There is no ascites. There is no sign of a bowel obstruction. IMPRESSION: There is evidence of sigmoid diverticulitis which is a change compared to old exam. No drainable flui d collection seen.
[2020-04-13] MEDS ORDERED: MORPHINE SULFATE 4 MG/ML SYRINGE IVP STA (22:13)
[2020-04-13] MEDS ORDERED: ONDANSETRON 4 MG ODT STARTER PACK 2 TAB BTL PO STA (22:13)
[2020-04-13] MEDS ORDERED: ACET/COD 300 MG/30 MG STARTER PACK 6 TAB BTL PO STA (22:13)
[2020-04-13] MEDS ORDERED: AMOXIC-POT CLAV 875MG STARTER PACK 2 TAB BTL PO STA (22:13)
[2020-04-13 23:35] VITALS: BP 140/86; PULSE 88; TEMP 97.9
== END 2020-04-13 23:10 | disposition home or self-care (01) ==
LOC: EC 20:06
DX: K57.32 Diverticulitis of large intestine without perforation or abscess without bleeding (principal); J45.909 Unspecified asthma, uncomplicated; K21.9 Gastro-esophageal reflux disease without esophagitis; I10 Essential (primary) hypertension; G47.30 Sleep apnea, unspecified; F17.200 Nicotine dependence, unspecified, uncomplicated; Z79.899 Other long term (current) drug therapy; Z90.49 Acquired absence of other specified parts of digestive tract; Z99.89 Dependence on other enabling machines and devices
CPT/HCPCS: 36415; 80053; 83605; 83690; 85025; 81003; 74177; 99284; 96374; 96361; J2270; S0119; Q9967

== ENCOUNTER 2020-05-03 10:42 | Day surgery (SDC) | payer OTHER ==
[2020-05-02 11:15] VITALS: BMI 42.7
[~2020-05-03 10:42] MED LIST changes: +LACTATED RINGERS 1,000 ML IV SCH; +LIDOCAINE 1% (10MG/ML) FOR IV START INTRADERMA PRN; -LIDOCAINE 1% 20 ML VIAL (10MG/ML) FOR IV START INTRADERMA PRN
[2020-05-03 11:13] VITALS: TEMP 97.3
[2020-05-03] MEDS ORDERED: PROPOFOL 10 MG/ML 20 ML VIAL IV ONE (12:23)
--- NOTE | 2020-05-03 12:42 | P.GSHP ---
History of Present Illness H&P Date: 05/03/20 Chief Complaint: Diverticulitis Is a 50-year-old male with history of diverticula is. Patient rents today for colonoscopy. Past Medical History Past Medical History: Asthma, GERD/Reflux, Hearing Disorder / Deafness, Hypertension, Sleep Apnea/CPAP/BIPAP Additional Past Medical History / Comment(s): C PAP MACHINE, BACK PAIN, [place]., NEW DX DIVERTICULITIS History of Any Multi-Drug Resistant Organisms: None Reported Past Surgical History: Cholecystectomy, Hernia Repair Additional Past Surgical History / Comment(s): 07/20/14 Lap alecia, left-cataract, EGD Past Anesthesia/Blood Transfusion Reactions: No Reported Reaction Smoking Status: Current every day smoker - Past Family History Mother Family Medical History: Hypertension Father Family Medical History: Asthma, COPD, Coronary Artery Disease (CAD), Hypertension Medications and Allergies Home Medications Medication Instructions Recorded Confirmed Type Cyclobenzaprine [Flexeril] 10 mg PO TID PRN 05/15/14 05/03/20 History Furosemide [Lasix] 20 mg PO DAILY PRN 05/15/14 05/03/20 History Lisinopril [Prinivil] 10 mg PO HS 05/15/14 05/03/20 History Ranitidine HCl [Zantac] 150 mg PO BID 05/15/14 05/03/20 History Simvastatin [Zocor] 40 mg PO HS 05/15/14 05/03/20 History HYDROcodone/APAP 10-325MG [[place] 1 tab PO Q8H PRN 07/03/17 05/03/20 History 10-325] Albuterol Inhaler (Mhu) [Ventolin 1 - 2 puff INHALATION Q6HR PRN 08/12/17 05/03/20 History Hfa Inhaler] Propranolol [Inderal] 20 mg PO HS 05/02/20 05/03/20 History Allergies Allergy/AdvReac Type Severity Reaction Status Date / Time No Known Allergies Allergy Verified 05/03/20 11:06 Surgical - Exam Vital Signs Temp Pulse Resp BP Pulse Ox 97.3 F L 58 L 19 132/68 96 05/03/20 11:09 05/03/20 11:09 05/03/20 11:09 05/03/20 11:09 05/03/20 11:09 - General well developed, well nourished, no distress - Eyes PERRL - ENT normal pinna - Neck no masses - Respiratory normal expansion - Cardiovascular Rhythm: regular - Abdomen Abdomen: soft, non tender Assessment and Plan Assessment: Diverticulitis. We'll perform colonoscopy
[2020-05-03 12:45] VITALS: PULSE 59; RESP 18
--- NOTE | 2020-05-03 12:48 | P.OP ---
Date of Procedure: 05/03/20 Preoperative Diagnosis: Diverticulitis Postoperative Diagnosis: Diverticulosis Procedure(s) Performed: Colonoscopy Anesthesia: MAC Surgeon: Sascha Barron Pathology: none sent Condition: stable Disposition: PACU Description of Procedure: The patient's placed on the endoscopy table lateral position. He received IV sedation. Digital rectal exam was performed which revealed no abnormalities. Flexible colonoscope was then placed patient anus passed throughout the entire colon. The ileocecal valve was visualized. The cecum, ascending and transverse colon appeared normal. In the descending; was mild diverticular changes. There is known to diverticular is. The scope summer back the rectum and this appeared normal. Scope was withdrawn for patient.
[2020-05-03 13:00] VITALS: BP 132/71
== END 2020-05-03 13:24 | disposition home or self-care (01) ==
LOC: ORWHC2ENDO 10:42
PROVIDERS: ATTEND Surgery
DX: K57.30 Diverticulosis of large intestine without perforation or abscess without bleeding (principal); I10 Essential (primary) hypertension; K21.9 Gastro-esophageal reflux disease without esophagitis; J45.909 Unspecified asthma, uncomplicated; E78.5 Hyperlipidemia, unspecified; G47.33 Obstructive sleep apnea (adult) (pediatric); E66.9 Obesity, unspecified; H91.90 Unspecified hearing loss, unspecified ear; F17.200 Nicotine dependence, unspecified, uncomplicated; Z99.89 Dependence on other enabling machines and devices; Z79.899 Other long term (current) drug therapy; Z98.890 Other specified postprocedural states; Z90.49 Acquired absence of other specified parts of digestive tract; Z98.42 Cataract extraction status, left eye; Z82.5 Family history of asthma and other chronic lower respiratory diseases; Z82.49 Family history of ischemic heart disease and other diseases of the circulatory system; Z68.41 Body mass index [BMI] 40.0-44.9, adult
CPT/HCPCS: 45378; J2704

== ENCOUNTER 2020-05-31 19:18 | Observation (INO) | payer OTHER ==
--- NOTE | 2020-05-31 20:30 | ED ---
General Adult HPI - General Chief complaint: Chest Pain Stated complaint: Chest Pain Time Seen by Provider: 05/31/20 20:06 Source: patient Mode of arrival: ambulatory Limitations: no limitations - History of Present Illness Initial comments: 50-year-old male with past history of asthma, GERD, hypertension presents to the emergency room for chief light of chest pain. Patient reports it as a pressure in the anterior aspect of his chest. It has been ongoing for about a week. Patient denies shortness of breath or pain with inhalation. Patient denies nausea or diaphoresis. States pain feels better when he goes to lie down at night using the CPAP machine. Patient does have a 32 pack per day history of smoking. Patient also has hyperlipidemia and hypertension. Patient saw his doctor today who tried to schedule him for an outpatient stress test however this could not be done for a few weeks. Therefore patient and his doctor made a joint decision for him to present to the emergency room tonight.Patient has no other complaints at this time including shortness of breath, abdominal pain, nausea or vomiting, headache, or visual changes. - Related Data Home Medications Medication Instructions Recorded Confirmed Cyclobenzaprine [Flexeril] 10 mg PO TID PRN 05/15/14 05/31/20 Furosemide [Lasix] 20 mg PO DAILY PRN 05/15/14 05/31/20 Simvastatin [Zocor] 40 mg PO HS 05/15/14 05/31/20 HYDROcodone/APAP 10-325MG [[place] 1 tab PO Q8H PRN 07/03/17 05/31/20 10-325] Propranolol [Inderal] 20 mg PO DAILY 05/02/20 05/31/20 Albuterol Sulfate [Proair Hfa] 2 puff INHALATION RT-QID PRN 05/31/20 05/31/20 Levothyroxine Sodium [Synthroid] 50 mcg PO DAILY 05/31/20 05/31/20 Pantoprazole [Protonix] 40 mg PO BID 05/31/20 05/31/20 Allergies Allergy/AdvReac Type Severity Reaction Status Date / Time No Known Allergies Allergy Verified 05/31/20 21:39 Review of Systems ROS Statement: Those systems with pertinent positive or pertinent negative responses have been documented in the HPI. ROS Other: All systems not noted in ROS Statement are negative. Past Medical History Past Medical History: Asthma, GERD/Reflux, Hearing Disorder / Deafness, Hypertension, Sleep Apnea/CPAP/BIPAP Additional Past Medical History / Comment(s): C PAP MACHINE, BACK PAIN, [place] NEW DX DIVERTICULITIS History of Any Multi-Drug Resistant Organisms: None Reported Past Surgical History: Cholecystectomy, Hernia Repair Additional Past Surgical History / Comment(s): 07/20/14 Lap alecia, left-cataract, EGD Past Anesthesia/Blood Transfusion Reactions: No Reported Reaction Past Psychological History: No Psychological Hx Reported Smoking Status: Current every day smoker - Past Family History Mother Family Medical History: Hypertension Father Family Medical History: Asthma, COPD, Coronary Artery Disease (CAD), Hypertension General Exam Limitations: no limitations General appearance: alert Head exam: Present: atraumatic, normal inspection Eye exam: Present: normal appearance, PERRL, EOMI ENT exam: Present: normal exam, mucous membranes moist Neck exam: Present: normal inspection, full ROM Respiratory exam: Present: normal lung sounds bilaterally. Absent: respiratory distress Cardiovascular Exam: Present: regular rate, normal rhythm, normal heart sounds GI/Abdominal exam: Present: soft, normal bowel sounds. Absent: distended, tenderness, guarding, rebound, rigid Neurological exam: Present: alert Course Vital Signs 05/31/20 05/31/20 05/31/20 19:26 19:58 22:35 Temperature 98.4 F Pulse Rate 77 68 65 Respiratory 18 20 18 Rate Blood Pressure 161/96 140/79 128/69 O2 Sat by Pulse 98 96 97 Oximetry EKG Findings - EKG Comments: EKG Findings:: Sinus bradycardia, ventricular rate 57, UT interval 172, QTC 438 Medical Decision Making - Lab Data Result diagrams: 05/31/20 20:43 05/31/20 20:43 Lab Results 05/31/20 05/31/20 05/31/20 Range/Units 20:43 20:43 20:43 WBC 9.6 (3.8-10.6) k/uL RBC 5.07 (4.30-5.90) m/uL Hgb 15.6 (13.0-17.5) gm/dL Hct 46.6 (39.0-53.0) % MCV 91.8 (80.0-100.0) fL MCH 30.8 (25.0-35.0) pg MCHC 33.5 (31.0-37.0) g/dL RDW 12.8 (11.5-15.5) % Plt Count 219 (150-450) k/uL MPV 8.5 Neutrophils % 70 % Lymphocytes % 20 % Monocytes % 6 % Eosinophils % 2 % Basophils % 1 % Neutrophils # 6.7 (1.3-7.7) k/uL Lymphocytes # 1.9 (1.0-4.8) k/uL Monocytes # 0.6 (0-1.0) k/uL Eosinophils # 0.2 (0-0.7) k/uL Basophils # 0.1 (0-0.2) k/uL PT 9.9 (9.0-12.0) sec INR 0.9 (<1.2) APTT 22.2 (22.0-30.0) sec Sodium 141 (137-145) mmol/L Potassium 4.3 (3.5-5.1) mmol/L Chloride 104 (98-107) mmol/L Carbon Dioxide 30 (22-30) mmol/L Anion Gap 7 mmol/L BUN 12 (9-20) mg/dL Creatinine 0.85 (0.66-1.25) mg/dL Est GFR (CKD-EPI)AfAm >90 (>60 ml/min/1.73 sqM) Est GFR (CKD-EPI)NonAf >90 (>60 ml/min/1.73 sqM) Glucose 109 H (74-99) mg/dL Calcium 9.5 (8.4-10.2) mg/dL Magnesium 1.8 (1.6-2.3) mg/dL Total Bilirubin 0.4 (0.2-1.3) mg/dL AST 23 (17-59) U/L ALT 21 (4-49) U/L Alkaline Phosphatase 61 (38-126) U/L Troponin I (0.000-0.034) ng/mL NT-Pro-B Natriuret Pep pg/mL Total Protein 7.0 (6.3-8.2) g/dL Albumin 4.0 (3.5-5.0) g/dL Lipase 67 (23-300) U/L 05/31/20 05/31/20 Range/Units 20:43 20:50 WBC (3.8-10.6) k/uL RBC (4.30-5.90) m/uL Hgb (13.0-17.5) gm/dL Hct (39.0-53.0) % MCV (80.0-100.0) fL MCH (25.0-35.0) pg MCHC (31.0-37.0) g/dL RDW (11.5-15.5) % Plt Count (150-450) k/uL MPV Neutrophils % % Lymphocytes % % Monocytes % % Eosinophils % % Basophils % % Neutrophils # (1.3-7.7) k/uL Lymphocytes # (1.0-4.8) k/uL Monocytes # (0-1.0) k/uL Eosinophils # (0-0.7) k/uL Basophils # (0-0.2) k/uL PT (9.0-12.0) sec INR (<1.2) APTT (22.0-30.0) sec Sodium (137-145) mmol/L Potassium (3.5-5.1) mmol/L Chloride (98-107) mmol/L Carbon Dioxide (22-30) mmol/L Anion Gap mmol/L BUN (9-20) mg/dL Creatinine (0.66-1.25) mg/dL Est GFR (CKD-EPI)AfAm (>60 ml/min/1.73 sqM) Est GFR (CKD-EPI)NonAf (>60 ml/min/1.73 sqM) Glucose (74-99) mg/dL Calcium (8.4-10.2) mg/dL Magnesium (1.6-2.3) mg/dL Total Bilirubin (0.2-1.3) mg/dL AST (17-59) U/L ALT (4-49) U/L Alkaline Phosphatase (38-126) U/L Troponin I <0.012 (0.000-0.034) ng/mL NT-Pro-B Natriuret Pep 21 pg/mL Total Protein (6.3-8.2) g/dL Albumin (3.5-5.0) g/dL Lipase (23-300) U/L Disposition Clinical Impression: Chest pain Disposition: ADMITTED IP TO THIS HOSP Is patient prescribed a controlled substance at d/c from ED?: No Referrals: Sola Borden MD [Primary Care Provider] - 1-2 days Time of Disposition: 22:48
[2020-05-31 21:03] LABS: ALT 21 U/L (4-49); AST 23 U/L (17-59); African American GFR (CKD) >90 (>60 ml/min/1.73 sqM); Alkaline Phosphatase 61 U/L (38-126); Anion Gap 7 mmol/L; Blood Urea Nitrogen 12 mg/dL (9-20); Calcium 9.5 mg/dL (8.4-10.2); Carbon Dioxide 30 mmol/L (22-30); Chloride 104 mmol/L (98-107); Glucose 109 mg/dL (74-99); Lipase 67 U/L (23-300); Magnesium 1.8 mg/dL (1.6-2.3); Non-African American GFR(CKD) >90 (>60 ml/min/1.73 sqM); Potassium 4.3 mmol/L (3.5-5.1); Sodium 141 mmol/L (137-145); Total Bilirubin 0.4 mg/dL (0.2-1.3)
[2020-05-31 21:12] LABS: Basophils # (A) 0.1 k/uL (0-0.2); Basophils % (A) 1 %; Eosinophils # (A) 0.2 k/uL (0-0.7); Eosinophils % (A) 2 %; HCT 46.6 % (39.0-53.0); HGB 15.6 gm/dL (13.0-17.5); Lymphocytes # (A) 1.9 k/uL (1.0-4.8); Lymphocytes % (A) 20 %; MCH 30.8 pg (25.0-35.0); MCHC 33.5 g/dL (31.0-37.0); MCV 91.8 fL (80.0-100.0); Mean Platelet Volume 8.5; Monocytes # (A) 0.6 k/uL (0-1.0); Monocytes % (A) 6 %; Neutrophils # (A) 6.7 k/uL (1.3-7.7); Neutrophils % (A) 70 %; Platelet Count 219 k/uL (150-450); RBC 5.07 m/uL (4.30-5.90); RDW 12.8 % (11.5-15.5); WBC 9.6 k/uL (3.8-10.6)
--- NOTE | 2020-05-31 21:14 | XR ---
EXAMINATION TYPE: XR chest 2V DATE OF EXAM: 05/31/2020 COMPARISON: 03/13/2019. HISTORY: Chest pain. TECHNIQUE: Frontal and lateral views of the chest are obtained. FINDINGS: There are small bibasilar streaky opacities. No pleural effusion, or pneumothorax seen. T he cardiac silhouette size is within normal limits. The osseous structures are intact. IMPRESSION: Bibasilar atelectasis versus infiltrates.
[2020-05-31 21:17] LABS: INR 0.9 (<1.2); Partial Thromboplastin Time 22.2 sec (22.0-30.0); Prothrombin Time 9.9 sec (9.0-12.0)
[2020-05-31] MEDS ORDERED: NITROGLYCERIN SL TABS 0.4 MG TAB SUBLINGUAL PRN (22:46)
[2020-05-31] MEDS ORDERED: ASPIRIN 81 MG PO STA (22:46)
[2020-06-01 05:39] LABS: Cholesterol 138 mg/dL (<200); HDL Cholesterol 25 mg/dL (40-60); LDL Cholesterol,Calculated 95 mg/dL (0-99); Triglycerides 92 mg/dL (<150)
[2020-06-01 08:37] VITALS: RESP 18
--- NOTE | 2020-06-01 08:46 | P.CRDCN ---
History of Present Illness Consult date: 06/01/20 Chief complaint: Chest pain History of present illness: This is a pleasant 50-year-old gentleman with a past medical history significant for nonischemic cardiomyopathy with a known EF around 20%, status post AICD, as well as hypertension and dyslipidemia and history of smoking who presented to the hospital complaining of chest discomfort. The patient never seen a interlacer in 40 years. He use to follow-up with the [facility] in [place]. His AICD was interrogated at [facility]. He stated that he was in his usual state of health until about yesterday when he was at home sitting reading a book and started experiencing discomfort in the chest. He described the discomfort as pressure in the mid of the chest without any radiation to the arms or neck or shoulders and without any associated symptoms of shortness of breath or sweating or dizziness or lightheadedness or any feeling of heart racing or fluttering or syncope. The EKG showed sinus rhythm with diffuse ST changes and also borderline corrected QT at 501 ms. The cardiac enzymes came in to be unremarkable. No recent workup. The last echocardiogram from 2014 and that revealed an EF of 20%. The chest x-ray did not show any acute abnormalities. Past Medical History Past Medical History: Asthma, GERD/Reflux, Hearing Disorder / Deafness, Hypertension, Sleep Apnea/CPAP/BIPAP Additional Past Medical History / Comment(s): C PAP MACHINE, BACK PAIN, [place]., NEW DX DIVERTICULITIS History of Any Multi-Drug Resistant Organisms: None Reported Past Surgical History: Cholecystectomy, Hernia Repair Additional Past Surgical History / Comment(s): 07/20/14 Lap alecia, left-cataract, EGD Past Anesthesia/Blood Transfusion Reactions: No Reported Reaction Past Psychological History: No Psychological Hx Reported Smoking Status: Current every day smoker - Past Family History Mother Family Medical History: Hypertension Father Family Medical History: Asthma, COPD, Coronary Artery Disease (CAD), Hypertension Medications and Allergies Home Medications Medication Instructions Recorded Confirmed Type Cyclobenzaprine [Flexeril] 10 mg PO TID PRN 05/15/14 05/31/20 History Furosemide [Lasix] 20 mg PO DAILY PRN 05/15/14 05/31/20 History Simvastatin [Zocor] 40 mg PO HS 05/15/14 05/31/20 History HYDROcodone/APAP 10-325MG [[place] 1 tab PO Q8H PRN 07/03/17 05/31/20 History 10-325] Propranolol [Inderal] 20 mg PO DAILY 05/02/20 05/31/20 History Albuterol Sulfate [Proair Hfa] 2 puff INHALATION RT-QID PRN 05/31/20 05/31/20 History Levothyroxine Sodium [Synthroid] 50 mcg PO DAILY 05/31/20 05/31/20 History Pantoprazole [Protonix] 40 mg PO BID 05/31/20 05/31/20 History Allergies Allergy/AdvReac Type Severity Reaction Status Date / Time No Known Allergies Allergy Verified 05/31/20 21:39 Physical Exam Vitals: Vital Signs Temp Pulse Pulse Resp BP BP Pulse Ox 06/01/20 08:35 97.3 F L 49 L 18 110/80 97 06/01/20 06:30 98.1 F 56 L 19 107/72 94 L 06/01/20 01:06 52 L 18 107/70 95 05/31/20 22:35 65 18 128/69 97 05/31/20 19:58 68 20 140/79 96 05/31/20 19:26 98.4 F 77 18 161/96 98 Intake and Output 05/31/20 06/01/20 06/01/20 22:59 06:59 14:59 Other: Weight 144.242 kg - Constitutional General appearance: no acute distress - Respiratory Respiratory: bilateral: rales - Cardiovascular Rhythm: regular Heart sounds: normal: S1, S2 Abnormal Heart Sounds: systolic murmur Results 05/31/20 20:43 05/31/20 20:43 Cardiac Enzymes 05/31/20 05/31/20 06/01/20 Range/Units 20:43 20:43 00:37 AST 23 (17-59) U/L Troponin I <0.012 <0.012 (0.000-0.034) ng/mL 06/01/20 Range/Units 04:58 AST (17-59) U/L Troponin I <0.012 (0.000-0.034) ng/mL Coagulation 05/31/20 Range/Units 20:43 PT 9.9 (9.0-12.0) sec APTT 22.2 (22.0-30.0) sec Lipids 06/01/20 Range/Units 04:58 Triglycerides 92 (<150) mg/dL Cholesterol 138 (<200) mg/dL HDL Cholesterol 25 L (40-60) mg/dL CBC 05/31/20 Range/Units 20:43 WBC 9.6 (3.8-10.6) k/uL RBC 5.07 (4.30-5.90) m/uL Hgb 15.6 (13.0-17.5) gm/dL Hct 46.6 (39.0-53.0) % Plt Count 219 (150-450) k/uL Comprehensive Metabolic Panel 05/31/20 Range/Units 20:43 Sodium 141 (137-145) mmol/L Potassium 4.3 (3.5-5.1) mmol/L Chloride 104 (98-107) mmol/L Carbon Dioxide 30 (22-30) mmol/L BUN 12 (9-20) mg/dL Creatinine 0.85 (0.66-1.25) mg/dL Glucose 109 H (74-99) mg/dL Calcium 9.5 (8.4-10.2) mg/dL AST 23 (17-59) U/L ALT 21 (4-49) U/L Alkaline Phosphatase 61 (38-126) U/L Total Protein 7.0 (6.3-8.2) g/dL Albumin 4.0 (3.5-5.0) g/dL Current Medications Generic Name Dose Route Start Last Admin Trade Name Freq PRN Reason Stop Dose Admin Aspirin 325 mg 06/01/20 09:00 Aspirin 325 Mg Tab PO DAILY IMMANUEL Nitroglycerin 0.4 mg 05/31/20 22:46 Nitroglycerin Sl Tabs 0.4 Mg Tab SUBLINGUAL Q5M PRN Chest Pain Intake and Output 05/31/20 06/01/20 06/01/20 22:59 06:59 14:59 Other: Weight 144.242 kg 05/31/20 20:43 05/31/20 20:43 Assessment and Plan Assessment: Assessment #1 atypical chest discomfort #2 nonischemic cardiomyopathy #3 chronic systolic congestive heart failure #4 history of smoking #5 multiple comorbid conditions Plan #1 acute coronary event was ruled out #2 we'll obtain a stress test to rule out severe CAD #3 unfortunately the patient didn't eat his breakfast this morning #4 obtain an echocardiogram #5 follow-up with the patient
[2020-06-01] MEDS ORDERED: ASPIRIN 325 MG TAB PO SCH (09:00)
--- NOTE | 2020-06-01 09:26 | P.HPIM ---
History of Present Illness H&P Date: 06/01/20 Chief Complaint: Chest pain Errol Garcia, is a 50-year-old male who presented to [facility] emergency room with a chief complaint of chest pain , patient describes episodes of pressure sensation in the middle of his chest radiating to the left arm that has been going on for several days on and off , patient was evaluated in emergency room, his vital examination on presentation revealed a temperature of 98.4 pulse 77 respiration 18 and blood pressure 161/96 pulse ox 98% on room air, his first EKG revealed normal findings, first troponin was within normal limits patient was admitted to observation unit for further evaluation and treatment cardiology consultation was requested. Patient has a known history of hypertension, hyperlipidemia, gastroesophageal reflux disease, hypothyroidism, degenerative disc disease with chronic back pain, and has a prolonged history of tobacco abuse. On review of systems there is no fever or chills no headache or dizziness no shortness of breath no cough no palpitation no nausea or vomiting no abdominal pain no diarrhea no blood in the stools no burning with urination no frequency or urgency and no hematuria there is no weakness or numbness in any of the extremities there is no change in vision speech or gait. Past Medical History Past Medical History: Asthma, GERD/Reflux, Hearing Disorder / Deafness, Hypertension, Sleep Apnea/CPAP/BIPAP Additional Past Medical History / Comment(s): C PAP MACHINE, BACK PAIN, [place]., NEW DX DIVERTICULITIS History of Any Multi-Drug Resistant Organisms: None Reported Past Surgical History: Cholecystectomy, Hernia Repair Additional Past Surgical History / Comment(s): 07/20/14 Lap alecia, left-cataract, EGD Past Anesthesia/Blood Transfusion Reactions: No Reported Reaction Past Psychological History: No Psychological Hx Reported Smoking Status: Current every day smoker - Past Family History Mother Family Medical History: Hypertension Father Family Medical History: Asthma, COPD, Coronary Artery Disease (CAD), Hypertension Medications and Allergies Home Medications Medication Instructions Recorded Confirmed Type Cyclobenzaprine [Flexeril] 10 mg PO TID PRN 05/15/14 05/31/20 History Furosemide [Lasix] 20 mg PO DAILY PRN 05/15/14 05/31/20 History Simvastatin [Zocor] 40 mg PO HS 05/15/14 05/31/20 History HYDROcodone/APAP 10-325MG [[place] 1 tab PO Q8H PRN 07/03/17 05/31/20 History 10-325] Propranolol [Inderal] 20 mg PO DAILY 05/02/20 05/31/20 History Albuterol Sulfate [Proair Hfa] 2 puff INHALATION RT-QID PRN 05/31/20 05/31/20 History Levothyroxine Sodium [Synthroid] 50 mcg PO DAILY 05/31/20 05/31/20 History Pantoprazole [Protonix] 40 mg PO BID 05/31/20 05/31/20 History Allergies Allergy/AdvReac Type Severity Reaction Status Date / Time No Known Allergies Allergy Verified 05/31/20 21:39 Physical Exam Vitals: Vital Signs Temp Pulse Pulse Resp BP BP Pulse Ox 06/01/20 08:35 97.3 F L 49 L 18 110/80 97 06/01/20 06:30 98.1 F 56 L 19 107/72 94 L 06/01/20 01:06 52 L 18 107/70 95 05/31/20 22:35 65 18 128/69 97 05/31/20 19:58 68 20 140/79 96 05/31/20 19:26 98.4 F 77 18 161/96 98 Intake and Output 05/31/20 06/01/20 06/01/20 22:59 06:59 14:59 Other: Weight 144.242 kg In general patient is alert and oriented 3 in no apparent distress HEENT head normocephalic and atraumatic Neck is supple no JVD no goiter no lymphadenopathy Chest exam reveals a few scattered rhonchi no wheezing Cardiac exam reveals regular heart sounds S1 and S2 no gallops no murmurs Abdomen is soft nontender no organomegaly was normal bowel sounds Extremity exam reveals no edema no cyanosis or clubbing Neurological examination reveals no gross focal deficits Results CBC & Chem 7: 05/31/20 20:43 05/31/20 20:43 Labs: Abnormal Lab Results - Last 24 Hours (Table) 05/31/20 06/01/20 Range/Units 20:43 04:58 Glucose 109 H (74-99) mg/dL HDL Cholesterol 25 L (40-60) mg/dL Assessment and Plan Plan: 1. Episodes of chest pain 2. Underlying history of hypertension 3. Underlying history of hyperlipidemia 4. Underlying history of gastroesophageal reflux disease 5. Underlying history of degenerative disc disease with chronic back pain maintained on narcotics for pain management 6. Underlying history of hypothyroidism 7. Tobacco abuse, patient counseled in length in regards to smoking cessation. At this time patient is admitted to telemetry floor serial EKG and cardiac enzymes are ordered Cardiology consultation was requested
--- NOTE | 2020-06-01 13:58 | P.CRDCN ---
History of Present Illness History of present illness: This is a pleasant 58-year-old gentleman with a past medical history significant for hypertension and dyslipidemia and history of smoking was referred to come to the emergency department. The patient presented mainly with a chest discomfort. It started about a week ago. He described the discomfort in the mid of the chest as a pressure on the chest without any radiation to the arms or neck or shoulders or sweating or dizziness or lightheadedness or any feeling of heart racing or fluttering or syncope. The chest discomfort does not seems to be exertion related. He rated the chest discomfort at 3/10 in intensity. No history of coronary artery disease or congestive heart failure or cardiac arrhythmia and the patient never seen by a signal manager before. The EKG showed sinus rhythm without any significant ST or T-wave abnormalities. The cardiac enzymes came in to be unremarkable. The chest x-ray did not show any acute abnormalities. The patient was seen by his primary care physician about a week ago and he was scheduled to undergo a stress test but unfortunately because of the chest discomfort was getting worse he decided to come, waiting for the stress test. At this point I am going to obtain an echocardiogram and also obtain a stress test to rule out severe underlying coronary artery disease and follow-up with the patient. Review of Systems At the time of my exam: CONSTITUTIONAL: Denies fever. Denies chills. EYES: Denies blurred vision. Denies vision changes. Denies eye pain. EARS, NOSE, MOUTH & THROAT: Denies headache. Denies sore throat. Denies ear pain. CARDIOVASCULAR: Denies chest pain. Denies shortness of breath. Denies orthopnea. Denies PND. Denies palpitations. RESPIRATORY: Denies cough. GASTROINTESTINAL: Denies abdominal pain. Denies diarrhea. Denies constipation. Denies nausea. Denies vomiting. MUSCULOSKELETAL: Denies myalgias. INTEGUMENTARY: Denies pruitis. Denies rash. NEUROLOGIC: Denies numbness. Denies tingling. Denies weakness. PSYCHIATRIC: Denies anxiety. Denies depression. ENDOCRINE: Denies fatigue. Denies weight change. Denies polydipsia. Denies polyurina. GENITOURINARY: Denies burning, hematuria or urgency with micturation. HEMATOLOGIC: Denies history of anemia. Denies bleeding. Past Medical History Past Medical History: Asthma, GERD/Reflux, Hearing Disorder / Deafness, Hypertension, Sleep Apnea/CPAP/BIPAP Additional Past Medical History / Comment(s): C PAP MACHINE, BACK PAIN, [place]., NEW DX DIVERTICULITIS History of Any Multi-Drug Resistant Organisms: None Reported Past Surgical History: Cholecystectomy, Hernia Repair Additional Past Surgical History / Comment(s): 07/20/14 Lap alecia, left-cataract, EGD Past Anesthesia/Blood Transfusion Reactions: No Reported Reaction Past Psychological History: No Psychological Hx Reported Smoking Status: Current every day smoker - Past Family History Mother Family Medical History: Hypertension Father Family Medical History: Asthma, COPD, Coronary Artery Disease (CAD), Hypertension Medications and Allergies Home Medications Medication Instructions Recorded Confirmed Type Cyclobenzaprine [Flexeril] 10 mg PO TID PRN 05/15/14 05/31/20 History Furosemide [Lasix] 20 mg PO DAILY PRN 05/15/14 05/31/20 History Simvastatin [Zocor] 40 mg PO HS 05/15/14 05/31/20 History HYDROcodone/APAP 10-325MG [[place] 1 tab PO Q8H PRN 07/03/17 05/31/20 History 10-325] Propranolol [Inderal] 20 mg PO DAILY 05/02/20 05/31/20 History Albuterol Sulfate [Proair Hfa] 2 puff INHALATION RT-QID PRN 05/31/20 05/31/20 History Levothyroxine Sodium [Synthroid] 50 mcg PO DAILY 05/31/20 05/31/20 History Pantoprazole [Protonix] 40 mg PO BID 05/31/20 05/31/20 History Allergies Allergy/AdvReac Type Severity Reaction Status Date / Time No Known Allergies Allergy Verified 05/31/20 21:39 Physical Exam Vitals: Vital Signs Temp Pulse Pulse Resp BP BP Pulse Ox 06/01/20 08:35 97.3 F L 49 L 18 110/80 97 06/01/20 06:30 98.1 F 56 L 19 107/72 94 L 06/01/20 01:06 52 L 18 107/70 95 05/31/20 22:35 65 18 128/69 97 05/31/20 19:58 68 20 140/79 96 05/31/20 19:26 98.4 F 77 18 161/96 98 Intake and Output 05/31/20 06/01/20 06/01/20 22:59 06:59 14:59 Output Total 1 Balance -1 Output: Urine 1 Other: Weight 144.242 kg 144.24 kg - Constitutional General appearance: no acute distress - Respiratory Respiratory: bilateral: CTA - Cardiovascular Rhythm: regular Heart sounds: normal: S1, S2 Results 05/31/20 20:43 05/31/20 20:43 Cardiac Enzymes 05/31/20 05/31/20 06/01/20 Range/Units 20:43 20:43 00:37 AST 23 (17-59) U/L Troponin I <0.012 <0.012 (0.000-0.034) ng/mL 06/01/20 Range/Units 04:58 AST (17-59) U/L Troponin I <0.012 (0.000-0.034) ng/mL Coagulation 05/31/20 Range/Units 20:43 PT 9.9 (9.0-12.0) sec APTT 22.2 (22.0-30.0) sec Lipids 06/01/20 Range/Units 04:58 Triglycerides 92 (<150) mg/dL Cholesterol 138 (<200) mg/dL HDL Cholesterol 25 L (40-60) mg/dL CBC 05/31/20 Range/Units 20:43 WBC 9.6 (3.8-10.6) k/uL RBC 5.07 (4.30-5.90) m/uL Hgb 15.6 (13.0-17.5) gm/dL Hct 46.6 (39.0-53.0) % Plt Count 219 (150-450) k/uL Comprehensive Metabolic Panel 05/31/20 Range/Units 20:43 Sodium 141 (137-145) mmol/L Potassium 4.3 (3.5-5.1) mmol/L Chloride 104 (98-107) mmol/L Carbon Dioxide 30 (22-30) mmol/L BUN 12 (9-20) mg/dL Creatinine 0.85 (0.66-1.25) mg/dL Glucose 109 H (74-99) mg/dL Calcium 9.5 (8.4-10.2) mg/dL AST 23 (17-59) U/L ALT 21 (4-49) U/L Alkaline Phosphatase 61 (38-126) U/L Total Protein 7.0 (6.3-8.2) g/dL Albumin 4.0 (3.5-5.0) g/dL Current Medications Generic Name Dose Route Start Last Admin Trade Name Garrisonq PRN Reason Stop Dose Admin Aspirin 325 mg 06/01/20 09:00 06/01/20 09:26 Aspirin 325 Mg Tab PO 325 mg DAILY IMMANUEL Administration Nitroglycerin 0.4 mg 05/31/20 22:46 Nitroglycerin Sl Tabs 0.4 Mg Tab SUBLINGUAL Q5M PRN Chest Pain Intake and Output 05/31/20 06/01/20 06/01/20 22:59 06:59 14:59 Output Total 1 Balance -1 Output: Urine 1 Other: Weight 144.242 kg 144.24 kg Patient Weight 06/02/20 06:59 Weight 144.24 kg 05/31/20 20:43 05/31/20 20:43 Assessment and Plan Assessment: Assessment #1 atypical chest discomfort #2 hypertension #3 smoking Plan #1 acute coronary syndrome was ruled out #2 we will obtain a stress test to rule out severe CAD #3 we'll obtain an echocardiogram was Doppler #4 follow-up with the patient
--- NOTE | 2020-06-01 14:00 | ECHOS ---
STRESS ECHOCARDIOGRAM LUMASON: Vial INDICATIONS: Chest pain. MEDICATIONS: BASELINE HEART RATE: 61 BASELINE BLOOD PRESSURE: 119/46 MAXIMUM HEART RATE: 148 MAXIMUM BLOOD PRESSURE: 186/77 85% MPHR: 145 100% MPHR: 171 METS: 7.1 MAXIMUM STAGE REACHED: II TOTAL EXERCISE TIME: 6 minutes CLINICAL INFORMATION: STRESS DATA: Pretesting physical examination showed a heart rate of 61, pressure is 119/46 mmHg. Baseline EKG showed sinus mechanism. The patient exercised on the treadmill according to Jagdish protocol for a total of 6 minutes and achieved 7.1 METs. Max heart rate was 148, which is about 86% of maximum predicted heart rate and maximum blood pressure was 186/77 mmHg. Clinically, patient did not have any symptoms of chest pain or chest discomfort. The EKG showed about 0.[address]-segment depression. ECHOCARDIOGRAM IMAGES: On echocardiogram images from parasternal long axis view, parasternal short axis view, apical 4 chamber and apical 2 chamber were obtained as the baseline images, at the peak heart rate as well as on recovery. The echocardiogram images showed overall good augmentation in the left ventricular systolic function without any evidence of wall motion abnormalities concerning for ischemia. CONCLUSION: 1. Good exercise tolerance. 2. Mild EKG changes in response to exercise. 3. Normal echocardiogram in response to exercise. MMODL / IJN: [id number] /
[2020-06-01 14:01] VITALS: BP 133/93; PULSE 59; TEMP 97.5
--- NOTE | 2020-06-02 14:25 | P.DS ---
Providers Date of admission: 05/31/20 22:09 Expected date of discharge: 06/01/20 Attending physician: Sola Borden Consults: 05/31/20 22:46 Consult Physician Routine Consulting Provider: [facility] Consult Reason/Comments: chest pain Do you want consulting provider notified?: Yes Primary care physician: Sola Michi [facility] Course: Diagnosis on discharge: 1. Episodes of chest pain 2. Underlying history of hypertension 3. Underlying history of hyperlipidemia 4. Underlying history of gastroesophageal reflux disease 5. Underlying history of degenerative disc disease with chronic back pain maintained on narcotics for pain management 6. Underlying history of hypothyroidism 7. Tobacco abuse, patient counseled in length in regards to smoking cessation. Hospital course: Errol Garcia, is a 50-year-old male who presented to [facility] emergency room with a chief complaint of chest pain , patient describes episodes of pressure sensation in the middle of his chest radiating to the left arm that has been going on for several days on and off , patient was evaluated in emergency room, his vital examination on presentation revealed a temperature of 98.4 pulse 77 respiration 18 and blood pressure 161/96 pulse ox 98% on room air, his first EKG revealed normal findings, first troponin was within normal limits patient was admitted to observation unit for further evaluation and treatment cardiology consultation was requested. Patient has a known history of hypertension, hyperlipidemia, gastroesophageal reflux disease, hypothyroidism, degenerative disc disease with chronic back pain, and has a prolonged history of tobacco abuse. On review of systems there is no fever or chills no headache or dizziness no shortness of breath no cough no palpitation no nausea or vomiting no abdominal pain no diarrhea no blood in the stools no burning with urination no frequency or urgency and no hematuria there is no weakness or numbness in any of the extremities there is no change in vision speech or gait. On 06/01/2020 patient was seen and examined on the telemetry floor he is alert and oriented 3 in no apparent distress he underwent a stress test today and did not have any evidence of acute ischemic changes, patient was evaluated by cardiology and was cleared for discharge, patient did not have any new episodes of chest pain, he was discharged home on 06/01/2020 he will be followed in our office within one week for further evaluation and treatment Plan - Discharge Summary New Discharge Prescriptions: New Aspirin 325 mg PO DAILY tab Continue Furosemide [Lasix] 20 mg PO DAILY PRN PRN Reason: edema Cyclobenzaprine [Flexeril] 10 mg PO TID PRN PRN Reason: Muscle Spasm Simvastatin [Zocor] 40 mg PO HS HYDROcodone/APAP 10-325MG [[place] 10-325] 1 tab PO Q8H PRN PRN Reason: Pain Propranolol [Inderal] 20 mg PO DAILY Levothyroxine Sodium [Synthroid] 50 mcg PO DAILY Albuterol Sulfate [Proair Hfa] 2 puff INHALATION RT-QID PRN PRN Reason: Shortness Of Breath Pantoprazole [Protonix] 40 mg PO BID Discharge Medication List Cyclobenzaprine [Flexeril] 10 mg PO TID PRN 05/15/14 [History] Furosemide [Lasix] 20 mg PO DAILY PRN 05/15/14 [History] Simvastatin [Zocor] 40 mg PO HS 05/15/14 [History] HYDROcodone/APAP 10-325MG [[place] 10-325] 1 tab PO Q8H PRN 07/03/17 [History] Propranolol [Inderal] 20 mg PO DAILY 05/02/20 [History] Albuterol Sulfate [Proair Hfa] 2 puff INHALATION RT-QID PRN 05/31/20 [History] Levothyroxine Sodium [Synthroid] 50 mcg PO DAILY 05/31/20 [History] Pantoprazole [Protonix] 40 mg PO BID 05/31/20 [History] Aspirin 325 mg PO DAILY tab 06/01/20 [Rx] Follow up Appointment(s)/Referral(s): Ray Dominguez MD [STAFF PHYSICIAN] - 2 Weeks Sola Borden MD [Primary Care Provider] - 1-2 days Patient Instructions/Handouts: Chest Pain (GEN) Discharge Disposition: HOME SELF-CARE
== END 2020-06-01 17:26 | disposition home or self-care (01) ==
LOC: EC 19:18 → 1SOBS 22:09
PROVIDERS: ADMIT Internal Medicine; ATTEND Internal Medicine
DX: R07.89 Other chest pain (principal); I10 Essential (primary) hypertension; J45.909 Unspecified asthma, uncomplicated; K21.9 Gastro-esophageal reflux disease without esophagitis; E78.5 Hyperlipidemia, unspecified; F17.210 Nicotine dependence, cigarettes, uncomplicated; H91.90 Unspecified hearing loss, unspecified ear; G47.30 Sleep apnea, unspecified; K57.90 Diverticulosis of intestine, part unspecified, without perforation or abscess without bleeding; E03.9 Hypothyroidism, unspecified; G89.29 Other chronic pain; M54.9 Dorsalgia, unspecified; Z20.828 Contact with and (suspected) exposure to other viral communicable diseases; Z99.89 Dependence on other enabling machines and devices; Z79.890 Hormone replacement therapy; Z79.891 Long term (current) use of opiate analgesic; Z79.899 Other long term (current) drug therapy; Z90.49 Acquired absence of other specified parts of digestive tract; Z98.42 Cataract extraction status, left eye; Z98.890 Other specified postprocedural states; Z82.49 Family history of ischemic heart disease and other diseases of the circulatory system; Z82.5 Family history of asthma and other chronic lower respiratory diseases
CPT/HCPCS: 99285; 36415; 93005 ×2; 93351; 83880; 80061; 80053; 83690; 83735; 84484 ×2; 85025; 85610; 85730; 87635; 71046; G0378 ×2; Q9950

== ENCOUNTER → 2020-06-11 | Outpatient (CLI) | payer OTHER ==
--- NOTE | 2020-06-12 02:27 | CT ---
EXAMINATION TYPE: CT chest w con DATE OF EXAM: 06/11/2020 COMPARISON: 04/28/2019 HISTORY: chest pain CT DLP: 858.3 mGycm Automated exposure control for dose reduction was used. CONTRAST: Performed with IV Contrast, patient injected with 100 mL of Isovue 300. There is some mild linear density in the lingula left upper lobe. There is similar mild linear densit y anterior right middle lobe. There is minimal pleural thickening and subsegmental atelectasis at the posterior lung bases. Heart size is normal. There are no hilar masses. There is no mediastinal adeno [place]. There is a 16 mm pretracheal lymph node. Thoracic aorta is intact. There is no aneurysm or dissection. I see no evidence of filling defect in the pulmonary arteries. Thoracic spine is intact. Sternum is intact. I see no bony destructive process. The upper abdominal s oft tissues are intact. There are surgical clips at the gastroesophageal junction. IMPRESSION: Minimal scarring and subsegmental atelectasis in the right middle lobe and lingula left upper lobe ap pears fairly stable compared to old exam. No suspicious pulmonary mass. Normal heart.
== END | disposition home or self-care (01) ==
LOC: RADCTMAIN 17:44
PROVIDERS: ATTEND Internal Medicine
DX: J98.11 Atelectasis (principal); J98.4 Other disorders of lung; Z88.8 Allergy status to other drugs, medicaments and biological substances; Z87.09 Personal history of other diseases of the respiratory system
CPT/HCPCS: 71260; Q9967

== ENCOUNTER → 2020-07-11 | Outpatient (CLI) | payer OTHER ==
[2020-07-11 15:35] LABS: HCT 44.1 % (39.0-53.0); HGB 14.8 gm/dL (13.0-17.5); MCH 30.7 pg (25.0-35.0); MCHC 33.7 g/dL (31.0-37.0); MCV 91.3 fL (80.0-100.0); Mean Platelet Volume 7.8; Platelet Count 214 k/uL (150-450); RBC 4.83 m/uL (4.30-5.90); RDW 12.8 % (11.5-15.5); WBC 8.8 k/uL (3.8-10.6)
[2020-07-11 15:44] LABS: African American GFR (CKD) >90 (>60 ml/min/1.73 sqM); Anion Gap 8 mmol/L; Blood Urea Nitrogen 13 mg/dL (9-20); Carbon Dioxide 24 mmol/L (22-30); Chloride 106 mmol/L (98-107); Non-African American GFR(CKD) >90 (>60 ml/min/1.73 sqM); Potassium 4.7 mmol/L (3.5-5.1); Sodium 138 mmol/L (137-145)
== END | disposition home or self-care (01) ==
LOC: LABPAT 14:55
PROVIDERS: ATTEND Internal Medicine Cardiovascular Disease
DX: Z01.818 Encounter for other preprocedural examination (principal); R07.2 Precordial pain
CPT/HCPCS: 80051; 82565; 84520; 85027

== ENCOUNTER → 2020-07-18 | Day surgery (SDC) | payer OTHER ==
[2020-07-10 12:49] VITALS: BMI 44.4
[~2020-07-18] MED LIST changes: +ALPRAZolam 0.25 MG TAB PO PRN; +ALPRAZolam 0.5 MG TAB PO PRN; +ASPIRIN 325 MG TAB PO ONE; +ATORVASTATIN 80 MG TAB PO ONE; +CYCLOBENZAPRINE 10 MG TAB PO PRN; +HEPARIN SODIUM,PORCINE 10,000 UNIT in SODIUM CHLORIDE 0.9% 1,000 ML IRRIGATION PRN; +HEPARIN SODIUM,PORCINE 2,500 UNIT in SODIUM CHLORIDE 0.9% 250 ML IRRIGATION PRN; +HYDROcodone/APAP 10-325MG 1 EACH TAB PO ONE; +HYDROcodone/APAP 10-325MG 1 EACH TAB PO PRN; +IOPAMIDOL-370 125ML BTL INJ ONE; -LACTATED RINGERS 1,000 ML IV SCH; -LIDOCAINE 1% (10MG/ML) FOR IV START INTRADERMA PRN; +MIDAZOLAM 2 MG/2 ML VIAL IV ONE; +NITROGLYCERIN SL TABS 0.4 MG TAB SUBLINGUAL PRN; +RX INFO: IV CONTRAST WAS GIVEN 1 EACH MISC MISCELLANE PRN; +SODIUM CHLORIDE 0.9% 1,000 ML IV ONE; +SODIUM CHLORIDE 0.9% 1,000 ML IV SCH; +SODIUM CHLORIDE 0.9% 1,000 ML in EMPTY BAG 1 BAG IV ONE; +fentaNYL (PF) 50 MCG/ML 2 ML AMP IV ONE
[2020-07-18 06:29] VITALS: TEMP 98.1
[2020-07-18 06:31] LABS: Basophils # (A) 0.1 k/uL (0-0.2); Basophils % (A) 1 %; Eosinophils # (A) 0.3 k/uL (0-0.7); Eosinophils % (A) 3 %; HCT 44.5 % (39.0-53.0); Lymphocytes # (A) 2.8 k/uL (1.0-4.8); Lymphocytes % (A) 25 %; MCHC 33.7 g/dL (31.0-37.0); MCV 91.9 fL (80.0-100.0); Mean Platelet Volume 7.7; Monocytes % (A) 9 %; Neutrophils % (A) 61 %; Platelet Count 216 k/uL (150-450); RBC 4.84 m/uL (4.30-5.90); RDW 12.9 % (11.5-15.5); WBC 11.4 k/uL (3.8-10.6)
[2020-07-18 06:43] LABS: African American GFR (CKD) >90 (>60 ml/min/1.73 sqM); Anion Gap 8 mmol/L; Blood Urea Nitrogen 12 mg/dL (9-20); Carbon Dioxide 31 mmol/L (22-30); Chloride 103 mmol/L (98-107); Glucose 94 mg/dL (74-99); Non-African American GFR(CKD) >90 (>60 ml/min/1.73 sqM); Sodium 142 mmol/L (137-145)
[2020-07-18 08:12] VITALS: RESP 18
--- NOTE | 2020-07-18 09:06 | CC ---
CARDIAC CATHETERIZATION REPORT INDICATION: Unstable angina. PROCEDURE NOTE: After obtaining informed consent, left heart catheterization and coronary angiogram are performed via the right femoral artery using standard Tanika catheters. The patient tolerated the procedure well without any obvious immediate complications. The femoral angiogram was performed and Angio-Seal was deployed for hemostasis. Patient received moderate conscious sedation. Total sedation time was 14 minutes. FINDINGS: 1. HEMODYNAMICS: Left ventricular end-diastolic pressure is 20 mm. There is no significant gradient across the aortic valve. 2. LEFT VENTRICULOGRAM: Left ventriculogram is not performed. 3. ANGIOGRAPHIC DATA: Left Main Coronary Artery: Left main coronary artery is a normal-sized vessel and is free of stenosis. Divides into left anterior descending coronary artery and circumflex coronary artery. LAD and its branches, circumflex coronary artery and its branches are free of significant stenosis. Right coronary artery is a large dominant vessel and is free of significant disease. CONCLUSIONS: 1. Normal coronary arteries. 2. Elevated left ventricular end-diastolic pressure of unclear clinical significance. PLAN: I reviewed angiographic data with the patient and told him that his chest discomfort is probably noncardiac in origin and his treatment is going to be in the form of risk factor modification. MMODL / IJN: [id number] /
--- NOTE | 2020-07-18 09:10 | LTR ---
July 18, 2020 Re: Errol Garcia Dear Sola: I performed cardiac catheterization on Errol Garcia a detailed catheterization note is enclosed for your records. In brief, cardiac catheterization reveals normal coronaries with elevated left ventricular end-diastolic pressure. The patient's chest discomfort is probably noncardiac in origin and his management is going to be in the form of risk factor modification. Thank you for allowing us to participate in the care of this pleasant gentleman. Sincerely, MD VENTURA Montesinos / CHRISTINA: [id number] /
[2020-07-18 10:22] VITALS: BP 106/57; PULSE 50
== END ==
LOC: CATHCVL 05:45
PROVIDERS: ATTEND Internal Medicine Cardiovascular Disease
DX: I20.0 Unstable angina (principal); E78.2 Mixed hyperlipidemia; I10 Essential (primary) hypertension; E78.00 Pure hypercholesterolemia, unspecified; E66.9 Obesity, unspecified; Z68.42 Body mass index [BMI] 45.0-49.9, adult; Z82.49 Family history of ischemic heart disease and other diseases of the circulatory system; Z87.891 Personal history of nicotine dependence; Z79.82 Long term (current) use of aspirin; Z79.890 Hormone replacement therapy; Z79.899 Other long term (current) drug therapy
CPT/HCPCS: 93458; 80048; 85025; C1769 ×2; C1760; C1894; J2250; J3010; Q9967

== ENCOUNTER → 2021-11-08 | Outpatient (CLI) | payer OTHER ==
--- NOTE | 2021-11-08 14:10 | XR ---
Right shoulder HISTORY: Pain 3 views the right shoulder Bone mineralization, joint spaces and alignment are maintained. Right lung apex as visualized is norm al. No fracture or dislocation. IMPRESSION: Acromioclavicular joint arthropathy.
== END | disposition home or self-care (01) ==
LOC: RADXRMAIN 11:34
PROVIDERS: ATTEND Internal Medicine
DX: M12.811 Other specific arthropathies, not elsewhere classified, right shoulder (principal); M25.511 Pain in right shoulder

== ENCOUNTER → 2022-04-18 | Outpatient (CLI) | payer OTHER ==
--- NOTE | 2022-04-19 07:57 | US ---
EXAMINATION TYPE: US kidneys/renal and bladder DATE OF EXAM: 04/18/2022 COMPARISON: NONE CLINICAL HISTORY: R10.31 RIGHT LOWER QUADRANT PAIN. Intermittent right flank pain EXAM MEASUREMENTS: Right Kidney: 11.7 x 5.2 x 5.2 cm Left Kidney: 11.9 x 6.2 x 5.1 cm Limitations due to patient's body habitus and large amount of overlying bowel content Right Kidney: no evidence of hydronephrosis Left Kidney: no evidence of hydronephrosis Bladder: not fully distended Bilateral Jets seen: no IMPRESSION: No evidence of obstructive uropathy.
== END | disposition home or self-care (01) ==
LOC: RADUSWWP 15:50
PROVIDERS: ATTEND Internal Medicine
DX: R10.31 Right lower quadrant pain (principal)
CPT/HCPCS: 76770

== ENCOUNTER → 2022-11-19 | Outpatient (CLI) | payer OTHER ==
--- NOTE | 2022-11-19 10:25 | CT ---
EXAMINATION TYPE: CT abdomen pelvis w con CT DLP: 2360.20 mGycm, Automated exposure control for dose reduction was used. DATE OF EXAM: 11/19/2022 9:54 AM COMPARISON: CT abdomen pelvis most recent from 04/13/2020 . CLINICAL INDICATION:Male, 52 years old with history of R10.31; RUQ pain TECHNIQUE: Standard CT of the abdomen and pelvis following the administration of 100 cc of Isovue 3 00 IV contrast material and oral contrast. Coronal and sagittal reformats were performed. FINDINGS: LOWER CHEST: Unremarkable ABDOMEN LIVER: Diffusely hypoattenuating parenchyma. Stable subcentimeter hypodense focus in the left hepatic lobe which is too small characterize but likely represents a cyst. GALLBLADDER AND BILE DUCTS: The gallbladder is surgically absent. PANCREAS: Fatty infiltration. SPLEEN: Unremarkable. ADRENAL GLANDS: Unremarkable. KIDNEYS AND URETERS: No evidence of hydronephrosis or renal calculus. The kidneys enhance symmetrical ly without suspicious focal lesion. PELVIS BLADDER: Incompletely distended but grossly unremarkable. REPRODUCTIVE: Unremarkable. ABDOMEN & PELVIS STOMACH AND BOWEL: Postsurgical changes of the GE junction. Distal colonic diverticulosis without sveta dence for acute diverticulitis. Enteric contrast is demonstrated within the ascending colon. The appe ndix is within normal limits. No evidence of bowel obstruction. PERITONEUM: No evidence of pneumoperitoneum or free fluid. VASCULATURE: Mild atherosclerotic calcifications are present throughout the abdominal aorta and its b ranches. No evidence of aortic aneurysm. MUSCULOSKELETAL: No acute osseous abnormalities. Mild disc degeneration changes are present throughou t the thoracolumbar spine. This is most pronounced at L5-S1. LYMPH NODES: No gross evidence for lymphadenopathy. SOFT TISSUE/ABDOMINAL WALL: Unremarkable IMPRESSION: 1. No acute abdominal/pelvic process. 2. Colonic diverticulosis without evidence for acute diverticulitis. 3. Hepatic steatosis.
== END | disposition home or self-care (01) ==
LOC: RADCTMAIN 07:55
PROVIDERS: ATTEND Internal Medicine
DX: K76.0 Fatty (change of) liver, not elsewhere classified (principal); K57.30 Diverticulosis of large intestine without perforation or abscess without bleeding
CPT/HCPCS: 74177; Q9967

== ENCOUNTER 2023-12-07 08:35 | Day surgery (SDC) | payer OTHER ==
[2023-12-03 15:07] VITALS: BMI 46.0
[~2023-12-07 08:35] MED LIST changes: -ALPRAZolam 0.25 MG TAB PO PRN; -ALPRAZolam 0.5 MG TAB PO PRN; -ASPIRIN 325 MG TAB PO ONE; -ATORVASTATIN 80 MG TAB PO ONE; -CYCLOBENZAPRINE 10 MG TAB PO PRN; -HEPARIN SODIUM,PORCINE 10,000 UNIT in SODIUM CHLORIDE 0.9% 1,000 ML IRRIGATION PRN; -HEPARIN SODIUM,PORCINE 2,500 UNIT in SODIUM CHLORIDE 0.9% 250 ML IRRIGATION PRN; -HYDROcodone/APAP 10-325MG 1 EACH TAB PO ONE; -HYDROcodone/APAP 10-325MG 1 EACH TAB PO PRN; -IOPAMIDOL-370 125ML BTL INJ ONE; +LIDOCAINE 1% (10MG/ML) FOR IV START INTRADERMA PRN; -MIDAZOLAM 2 MG/2 ML VIAL IV ONE; -NITROGLYCERIN SL TABS 0.4 MG TAB SUBLINGUAL PRN; -RX INFO: IV CONTRAST WAS GIVEN 1 EACH MISC MISCELLANE PRN; -SODIUM CHLORIDE 0.9% 1,000 ML IV ONE; -SODIUM CHLORIDE 0.9% 1,000 ML IV SCH; -SODIUM CHLORIDE 0.9% 1,000 ML in EMPTY BAG 1 BAG IV ONE; -fentaNYL (PF) 50 MCG/ML 2 ML AMP IV ONE
[2023-12-07 09:37] VITALS: TEMP 97
[2023-12-07] MEDS: IV FLUID CONTINUATION 1,000 ML IV ONE (09:37)
[2023-12-07] MEDS: LACTATED RINGERS 1,000 ML IV SCH (09:45)
[2023-12-07] MEDS ORDERED: PROPOFOL 10 MG/ML 20 ML VIAL IV ONE (10:41)
[2023-12-07] MEDS ORDERED: LIDOCAINE 1% INJ 10MG/ML (20 ML MDV) ONE (10:41)
--- NOTE | 2023-12-07 10:45 | P.GSHP ---
History of Present Illness H&P Date: 12/07/23 Chief Complaint: Screening colonoscopy Male who presents today for screening colonoscopy. Patient denies any significant GI complaints. Past Medical History Past Medical History: Asthma, GERD/Reflux, Hearing Disorder / Deafness, Hyper tension, Sleep Apnea/CPAP/BIPAP Additional Past Medical History / Comment(s): C PAP MACHINE, BACK PAIN, [place] NEW DX DIVERTICULITIS, SEE DR. Irwin [facility] FOR CARDIAC HX History of Any Multi-Drug Resistant Organisms: None Reported Past Surgical History: Cholecystectomy, Hernia Repair Additional Past Surgical History / Comment(s): 07/20/14 Lap alecia, left-cataract, EGD, colonoscopy Past Anesthesia/Blood Transfusion Reactions: No Reported Reaction Additional Past Anesthesia/Blood Transfusion Reaction / Comment(s): no blood transfusion Smoking Status: Former smoker - Past Family History Mother Family Medical History: Hypertension Father Family Medical History: Asthma, COPD, Coronary Artery Disease (CAD), Hypertension Medications and Allergies Home Medications Medication Instructions Recorded Confirmed Type Cyclobenzaprine [Flexeril] 10 mg PO TID PRN 05/15/14 12/07/23 History Furosemide [Lasix] 20 mg PO DAILY 05/15/14 12/07/23 History Simvastatin [Zocor] 40 mg PO HS 05/15/14 12/07/23 History HYDROcodone/APAP 10-325MG [[place] 1 tab PO Q8H PRN 07/03/17 12/07/23 History 10-325] Propranolol [Inderal] 20 mg PO DAILY 05/02/20 12/07/23 History Albuterol Sulfate [Proair Hfa] 2 puff INHALATION RT-QID PRN 05/31/20 12/07/23 History Levothyroxine Sodium [Synthroid] 50 mcg PO DAILY 05/31/20 12/07/23 History Pantoprazole [Protonix] 40 mg PO BID 05/31/20 12/07/23 History Isosorbide Mononitrate [Isosorbide 30 mg PO DAILY 07/10/20 12/07/23 History Mononitrate ER] Allergies Allergy/AdvReac Type Severity Reaction Status Date / Time No Known Allergies Allergy Verified 12/07/23 09:38 Surgical - Exam Vital Signs Temp Pulse Resp BP Pulse Ox 97.0 F L 97 18 149/75 95 12/07/23 09:36 12/07/23 09:36 12/07/23 09:36 12/07/23 09:36 12/07/23 09:36 - General well developed, well nourished, no distress - Eyes PERRL - ENT normal pinna - Neck no masses - Respiratory normal expansion - Cardiovascular Rhythm: regular - Abdomen Abdomen: soft, non tender Assessment and Plan Assessment: Perform screening colonoscopy
[2023-12-07 11:02] VITALS: RESP 16
--- NOTE | 2023-12-07 11:03 | P.OP ---
Date of Procedure: 12/07/23 Preoperative Diagnosis: Screening colonoscopy Postoperative Diagnosis: Rectal polyp Diverticulosis Procedure(s) Performed: Colonoscopy Anesthesia: MAC Surgeon: Sascha Barron Pathology: other (rectal polyp) Condition: stable Disposition: PACU Description of Procedure: The patient was placed on the endoscopy table in the lateral position. He received IV sedation. Digital rectal exam was performed. This revealed no abnormalities. Flexible colonoscope was then placed patient anus and passed throughout the entire colon. The ileocecal valve was visualized. The cecum, ascending transverse colon appeared normal. In the descending sigmoid colon there was moderate diverticulosis. Scope was brought back to the rectum and another polyp was seen. Through the cold forcep. Scope withdrawn from the patient.
[2023-12-07 11:12] VITALS: BP 113/69; PULSE 58
== END 2023-12-07 11:35 | disposition home or self-care (01) ==
LOC: ORWHC2ENDO 08:35
PROVIDERS: ATTEND Surgery
DX: K63.5 Polyp of colon (principal); J45.909 Unspecified asthma, uncomplicated; K21.9 Gastro-esophageal reflux disease without esophagitis; I10 Essential (primary) hypertension; J44.9 Chronic obstructive pulmonary disease, unspecified; H91.90 Unspecified hearing loss, unspecified ear; G47.33 Obstructive sleep apnea (adult) (pediatric); Z98.890 Other specified postprocedural states; Z90.49 Acquired absence of other specified parts of digestive tract; Z87.891 Personal history of nicotine dependence; Z82.49 Family history of ischemic heart disease and other diseases of the circulatory system; Z79.1 Long term (current) use of non-steroidal anti-inflammatories (NSAID); Z79.899 Other long term (current) drug therapy; Z79.02 Long term (current) use of antithrombotics/antiplatelets; Z79.891 Long term (current) use of opiate analgesic; Z79.890 Hormone replacement therapy
CPT/HCPCS: 88305; 45380; J2001; J2704

== ENCOUNTER → 2023-12-07 | Outpatient (CLI) | payer OTHER ==
--- NOTE | 2023-12-07 15:46 | US ---
EXAMINATION TYPE: US thyroid st tissue head/neck DATE OF EXAM: 12/07/2023 COMPARISON: NONE CLINICAL INDICATION: Male, 53 years old with history of R13.10 DYSPHAGIA, UNSPECIFIED; dry throat aft er dental procedure, Hx of thyroid dysfunction, on meds GLAND SIZE: Right Lobe: 5.3x2.1x1.9 cm Overall Parenchyma: homogeneous Left Lobe: 4.3x1.8x1.8 cm Overall Parenchyma: homogeneous Isthmus Thickness: 0.6 cm NODULES RIGHT: # of nodules measured on right: 0 LEFT: # of nodules measured on left: 0 ISTHMUS: # of nodules measured in the isthmus: 0 Bilateral neck scanned, no evidence of lymphadenopathy. IMPRESSION: Mildly prominent thyroid gland without discrete nodule.
== END | disposition home or self-care (01) ==
LOC: RADUSWWP 15:22
PROVIDERS: ATTEND Internal Medicine
DX: E07.9 Disorder of thyroid, unspecified (principal); R13.10 Dysphagia, unspecified
CPT/HCPCS: 76536